=== PATIENT | male | born 1950 | race American Indian/Alaskan Native ===

== ENCOUNTER 2019-03-12 20:24 | Emergency (ER) | payer MEDICARE, OTHER ==
[2019-03-12 20:43] VITALS: BP 106/70; PULSE 63
[2019-03-12] MEDS ORDERED: GI Cocktail Oral Solution 30 ML PO ONE (21:02)
--- NOTE | 2019-03-12 21:14 | EDM.PDOC ---
ED HPI GENERAL MEDICAL PROBLEM - General Chief Complaint: Chest Pain Stated Complaint: WHOLE STOMACH HURTING Time Seen by Provider: 03/12/19 21:08 Source of Information: Reports: Patient History Limitations: Reports: No Limitations - History of Present Illness INITIAL COMMENTS - FREE TEXT/NARRATIVE: patient comes Department today with complaints of epigastric pain that has been going on for the past 3 days. He has not had any heartburn or sour taste in his throat. He has not had any nausea or vomiting but he has tried to make himself throw up to see if it would make him feel better. He still has his gallbladder. No other pain in his abdomen other than his epigastric pain. No diarrhea. No fever no chills. No chest pain or shortness of breath or difficulty breathing. No cough or congestion. No wheezing. No fever no chills.He has not tried anything for the pain other than trying to make himself throw up. Lower Chest Pain Score (Numeric/FACES): 9 - Related Data Allergies Allergy/AdvReac Type Severity Reaction Status Date / Time No Known Allergies Allergy Verified 03/12/19 20:44 Home Meds: Home Meds Fluticasone/Salmeterol [Advair 100-50] 1 puff INH BID 01/15/13 [History] Ipratropium/Albuterol Sulfate [Duoneb 0.5 MG-3 MG/3 ML] 3 ml IH BID PRN [History] Levalbuterol HCl [Xopenex] 1 puff IH BID 01/15/13 [History] Multivitamin [Multi Vitamin Daily] 1 each PO ASDIRECTED 01/15/13 [History] Ferrous Sulfate [Feosol] 325 mg PO DAILY 02/21/13 [History] Levothyroxine 50 mcg PO ACBRK 02/21/13 [History] Sennosides [Senna] 17.2 mg PO DAILY 02/21/13 [History] Tiotropium [Spiriva] 18 mcg INH DAILY 02/21/13 [History] Aspirin [Ecotrin EC] 325 mg PO DAILY 03/12/19 [History] Past Medical History HEENT History: Reports: Cataract, Impaired Vision Cardiovascular History: Reports: Heart Valve Replacement, High Cholesterol, Hypertension Respiratory History: Reports: Other (See Below) Other Respiratory History: Lung CA Gastrointestinal History: Reports: Other (See Below) Other Gastrointestinal History: Colon surgery 2013 Genitourinary History: Reports: None Musculoskeletal History: Reports: Osteoarthritis Neurological History: Reports: None Psychiatric History: Reports: None Endocrine/Metabolic History: Reports: None Hematologic History: Reports: None Immunologic History: Reports: None Oncologic (Cancer) History: Reports: Colon, Lung Other Oncologic History: Colon and Lung Cancer 2013 Dermatologic History: Reports: Eczema - Infectious Disease History Infectious Disease History: Reports: Chicken Pox, Shingles - Past Surgical History Head Surgeries/Procedures: Reports: None HEENT Surgical History: Reports: Cataract Surgery Cardiovascular Surgical History: Reports: Valve Replacement Male Surgical History: Reports: None Endocrine Surgical History: Reports: None Neurological Surgical History: Reports: None Musculoskeletal Surgical History: Reports: None Oncologic Surgical History: Reports: None Social & Family History - Family History Family Medical History: Noncontributory - Tobacco Use Smoking Status *Q: Former Smoker Used Tobacco, but Quit: Yes Month/Year Tobacco Last Used: 04/2013 Second Hand Smoke Exposure: No - Caffeine Use Caffeine Use: Reports: Coffee, Soda, Tea - Recreational Drug Use Recreational Drug Use: No ED ROS GENERAL - Review of Systems Review Of Systems: Comprehensive ROS is negative, except as noted in HPI. ED EXAM, GENERAL - Physical Exam Exam: See Below Exam Limited By: No Limitations General Appearance: Alert, WD/WN, No Apparent Distress Eye Exam: Bilateral Eye: Normal Inspection Ears: Normal External Exam, Normal TMs Nose: Normal Inspection, Normal Mucosa, No Blood Throat/Mouth: Normal Inspection, Normal Lips Head: Atraumatic, Normocephalic Neck: Normal Inspection, Supple, Non-Tender Respiratory/Chest: No Respiratory Distress, Lungs Clear, Normal Breath Sounds Cardiovascular: Normal Peripheral Pulses, Regular Rate, Rhythm GI/Abdominal: Normal Bowel Sounds, Soft, Pelvis Stable, Tender (epigastric tenderness without guarding or rebound although a positive [place] sign. ). No : Distended, Guarding, Rigid Back Exam: Normal Inspection. No: CVA Tenderness (L), CVA Tenderness (R) Extremities: Normal Inspection, Normal Range of Motion, Normal Capillary Refill Neurological: Alert, Oriented, Normal Cognition, No Motor/Sensory Deficits Psychiatric: Normal Affect, Normal Mood Skin Exam: Warm, Dry, Intact, Normal Color EKG INTERPRETATION EKG Date: 03/12/19 Time: 20:37 Rhythm: NSR Rate (Beats/Min): 58 [place]: Normal P-Wave: Present QRS: RBBB ST-T: Normal QT: Normal Comparison: NA - No Prior EKG Course - Vital Signs Last Recorded V/S: Last Vital Signs Temp 35.6 C 03/12/19 20:38 Pulse 63 03/12/19 20:38 Resp 20 03/12/19 20:38 BP 106/70 03/12/19 20:38 Pulse Ox 100 03/12/19 20:38 - Orders/Labs/Meds Orders: Active Orders 24 hr Category Date Time Status EKG 12 Lead [EKG Documentation Completion] [RC] URGENT Care 03/12/19 21:01 Active Labs: Laboratory Tests 03/12/19 03/12/19 03/12/19 Range/Units 20:42 20:42 20:42 WBC 12.3 H (5.0-10.0) 10^3/uL RBC 4.34 L (4.6-6.2) 10^6/uL Hgb 13.8 L D (14.0-18.0) g/dL Hct 42.2 (40.0-54.0) % MCV 97.2 D (80-100) fL MCH 31.8 (27.0-34.0) pg MCHC 32.7 L (33.0-35.0) g/dL Plt Count 198 (150-450) 10^3/uL Neut % (Auto) 79.1 H (42.2-75.2) % Lymph % (Auto) 10.8 L (20.5-50.1) % [place] % (Auto) 6.3 (2-8) % Eos % (Auto) 2.8 (1.0-3.0) % Baso % (Auto) 1.0 (0.0-1.0) % Add Manual Diff Yes Neutrophils % (Manual) 82 H (42-75) % Lymphocytes % (Manual) 11 L (20-50) % Monocytes % (Manual) 5 (2-8) % Eosinophils % (Manual) 2 (1-3) % Sodium 137 (135-145) mmol/L Potassium 4.1 (3.6-5.0) mmol/L Chloride 101 (101-111) mmol/L Carbon Dioxide 26.0 (21.0-31.0) mmol/L Anion Gap 14.1 BUN 33 H (7-18) mg/dL Creatinine 1.9 H (0.6-1.3) mg/dL Est Cr Clr Drug Dosing 38.95 mL/min Estimated GFR (MDRD) 36 BUN/Creatinine Ratio 17.36 Glucose 109 H (74-105) mg/dL Calcium 9.4 (8.4-10.2) mg/dl Total Bilirubin 2.0 H (0.2-1.0) mg/dL AST 64 H (10-42) IU/L ALT 34 (10-60) IU/L Alkaline Phosphatase 92 (42-121) IU/L Troponin I < 0.02 (0.00-0.02) ng/ml C-Reactive Protein 1.5 H (0.0-1.3) mg/dL Total Protein 8.4 H (6.7-8.2) g/dl Albumin 4.4 (3.2-5.5) g/dl Globulin 4.0 Albumin/Globulin Ratio 1.10 Lipase 40 (22-51) U/L Meds: Medications Discontinued Medications Generic Name Dose Route Start Last Admin Trade Name Freq PRN Reason Stop Dose Admin Al Hydroxide/Mg Hydroxide 30 ml 03/12/19 21:02 03/12/19 21:15 Gi Cocktail PO 03/12/19 21:03 30 ml ONETIME ONE Administration Hydromorphone HCl 0.5 mg 03/12/19 21:49 03/12/19 22:05 Dilaudid IVPUSH 03/12/19 21:50 0.5 mg ONETIME ONE Administration Piperacillin Sod/Tazobactam 100 mls @ 200 mls/hr 03/12/19 22:37 03/12/19 22: 44 Sod 3.375 gm/ Sodium Chloride IV 03/12/19 23:06 200 mls/hr ONETIME ONE Administration - Radiology Interpretation Free Text/Narrative:: chest x-ray per radiology no acute abnormality. - Re-Assessments/Exams Free Text/Narrative Re-Assessment/Exam: 03/12/19 21:50 GI cocktail without relief of pain. Dilaudid 0.5mg IVP Will CT abd pelvis without contrast for gallbladder no US available. Creat 2.0 at baseline no contrast. 03/13/19 01:00 Dilaudid helped the pain quite a bit. CT concerning for distended gallbladder and CBD stone. Lipase normal. Minimally elevated WBC and elevated T Clinton at 2 which is new for him. I called and spoke with Dr. Gomez the hospitalist early childhood education coordinator at [facility] in . HPI ER COURSE findings and concerns of the CBD stone with elevated [place] and distended gallbladder were explained to him. He accepted the patient in transfer at this time with Zosyn started prior to transfer. I reviewed my concerns with the patient as well. He is understanding of the plan of care and his questions answered. Departure - Departure Time of Disposition: 22:00 Disposition: DC/Tfer to [facility] 02 Reason for Transfer *Q: Other Clinical Impression: Common bile duct (CBD) obstruction Referrals: Ramón Muller MD [Primary Care Provider] - Forms: ED Department Discharge Sepsis Event Note - Evaluation Sepsis Screening Result: No Definite Risk - Focused Exam Vital Signs: Vital Signs Temp Pulse Resp BP Pulse Ox 03/12/19 20:38 35.6 C 63 20 106/70 100 Date Exam was Performed: 03/13/19 Time Exam was Performed: 00:59 - My Orders Last 24 Hours: My Active Orders 03/12/19 21:01 EKG 12 Lead [EKG Documentation Completion] [RC] URGENT - Assessment/Plan Last 24 Hours: My Active Orders 03/12/19 21:01 EKG 12 Lead [EKG Documentation Completion] [RC] URGENT Assessment:: Distended gallbladder with CT concerns for CBD stone Elevated T [place] Plan: Transfer to [facility] Dr. Gomez for further care and evaluation.
[2019-03-12 21:24] LABS: ANION GAP 14.1; CHLORIDE,CL 101 mmol/L (101-111); SODIUM,NA 137 mmol/L (135-145)
[2019-03-12] MEDS ORDERED: HYDROmorphone 0.5 MG/0.5 ML Syringe IVPUSH ONE (21:49)
[2019-03-12] MEDS ORDERED: Piperacillin/Tazobactam 3.375 GM in Sodium Chloride 0.9% 100 ML IV ONE (22:37)
== END 2019-03-13 00:55 ==
LOC: DL.ED 20:24
DX: K83.1 Obstruction of bile duct (principal); M19.90 Unspecified osteoarthritis, unspecified site; I10 Essential (primary) hypertension; Z79.899 Other long term (current) drug therapy; Z79.82 Long term (current) use of aspirin; Z87.891 Personal history of nicotine dependence
CPT/HCPCS: 36415; 71046; 74176; 80053; 83690; 84484; 85025; 86140; 93005; 96365; 96366; 96375; 99284; A9270; J1170; J2543; J7050; 93010

== ENCOUNTER 2020-12-27 11:09 | Observation (INO) | payer MEDICARE, OTHER ==
[2020-12-27] MEDS ORDERED: Adenosine 6 MG/2 ML SDV IVPUSH ONE ×2 (11:24→11:36)
[2020-12-27] MEDS ORDERED: Diltiazem 25 MG/5 ML SDV IVPUSH ONE (11:43)
--- NOTE | 2020-12-27 11:47 | EDM.PDOC ---
ED HPI GENERAL MEDICAL PROBLEM - General Chief Complaint: Cardiovascular Problem Stated Complaint: FROM [facility] Time Seen by Provider: 12/27/20 11:10 Source of Information: Reports: Patient, Provider History Limitations: Reports: No Limitations - History of Present Illness INITIAL COMMENTS - FREE TEXT/NARRATIVE: This 70 yo male patient was sent to the ED from the infusion center due to a heart rate of 167. EKG was reported as A fib with RVR. The patient reports he is asymptomatic with his current heart rate. The patient does have a history of A Fib with RVR and Lung Cancer. The patient reports he has been taking his medications as prescribed. The patient does not want to be admitted to the hospital due to the patient having children at home that he needs to take care of. Onset: Unknown/Unsure Duration: Constant Location: Reports: Other Quality: Reports: Other Severity: Moderate Improves with: Reports: None Worsens with: Reports: None Context: Reports: Other Associated Symptoms: Reports: No Other Symptoms - Related Data Allergies Allergy/AdvReac Type Severity Reaction Status Date / Time No Known Allergies Allergy Verified 12/27/20 11:19 Home Meds: Home Meds Fluticasone/Salmeterol [Advair 100-50] 1 puff INH BID 01/15/13 [History] Ipratropium/Albuterol Sulfate [Duoneb 0.5 MG-3 MG/3 ML] 3 ml IH BID PRN 01/15/13 [History] Levalbuterol HCl [Xopenex] 1 puff IH BID 01/15/13 [History] Multivitamin [Multi Vitamin Daily] 1 each PO ASDIRECTED 01/15/13 [History] Ferrous Sulfate [Feosol] 325 mg PO DAILY 02/21/13 [History] Levothyroxine 50 mcg PO ACBRK 02/21/13 [History] Sennosides [Senna] 17.2 mg PO DAILY 02/21/13 [History] Tiotropium [Spiriva] 18 mcg INH DAILY 02/21/13 [History] Aspirin [Ecotrin EC] 325 mg PO DAILY 03/12/19 [History] Past Medical History HEENT History: Reports: Cataract, Impaired Vision Cardiovascular History: Reports: Heart Valve Replacement, High Cholesterol, Hypertension Respiratory History: Reports: Other (See Below) Other Respiratory History: Lung CA Gastrointestinal History: Reports: Other (See Below) Other Gastrointestinal History: Colon surgery 2013 Genitourinary History: Reports: None Musculoskeletal History: Reports: Osteoarthritis Neurological History: Reports: None Psychiatric History: Reports: None Endocrine/Metabolic History: Reports: None Hematologic History: Reports: None Immunologic History: Reports: None Oncologic (Cancer) History: Reports: Colon, Lung Other Oncologic History: Colon and Lung Cancer 2013 Dermatologic History: Reports: Eczema - Infectious Disease History Infectious Disease History: Reports: Chicken Pox, Shingles - Past Surgical History Head Surgeries/Procedures: Reports: None HEENT Surgical History: Reports: Cataract Surgery Cardiovascular Surgical History: Reports: Valve Replacement Male Surgical History: Reports: None Endocrine Surgical History: Reports: None Neurological Surgical History: Reports: None Musculoskeletal Surgical History: Reports: None Oncologic Surgical History: Reports: None Social & Family History - Family History Family Medical History: No Pertinent Family History - Caffeine Use Caffeine Use: Reports: Coffee, Soda, Tea ED ROS GENERAL - Review of Systems Review Of Systems: Comprehensive ROS is negative, except as noted in HPI. ED EXAM, GENERAL - Physical Exam Exam: See Below Exam Limited By: No Limitations General Appearance: Alert, WD/WN, Moderate Distress Eye Exam: Bilateral Eye: EOMI, Normal Inspection, PERRL Ears: Normal External Exam, Normal Canal, Hearing Grossly Normal, Normal TMs Nose: Normal Inspection, Normal Mucosa, No Blood Throat/Mouth: Normal Inspection, Normal Lips, Normal Teeth, Normal Gums, Normal Oropharynx, Normal Voice, No Airway Compromise Head: Atraumatic, Normocephalic Neck: Normal Inspection, Supple, Non-Tender, Full Range of Motion Respiratory/Chest: No Respiratory Distress, Lungs Clear, Normal Breath Sounds, No Accessory Muscle Use, Chest Non-Tender Cardiovascular: Tachycardia GI/Abdominal: Normal Bowel Sounds, Soft, Non-Tender, No Organomegaly, No Distention, No Abnormal Bruit, No Mass (Male) Exam: Deferred Rectal (Males) Exam: Deferred Back Exam: Normal Inspection, Full Range of Motion, NT Extremities: Normal Inspection, Normal Range of Motion, Non-Tender, Normal Capillary Refill, No Pedal Edema Neurological: Alert, Oriented, CN II-XII Intact, Normal Cognition, Normal Gait, Normal Reflexes, No Motor/Sensory Deficits Psychiatric: Normal Affect, Normal Mood Skin Exam: Warm, Dry, Intact, Normal Color, No Rash Lymphatic: No Adenopathy #1 Interpretation EKG Date: 12/27/20 Time: 11:19 Rhythm: Other (SVT) Rate (Beats/Min): 166 [place]: Normal P-Wave: Present QRS: Normal ST-T: Normal QT: Normal #2 Interpretation EKG Date: 12/27/20 Time: 11:49 Rhythm: A-Flutter Rate (Beats/Min): 80 [place]: Normal P-Wave: Present QRS: Normal ST-T: Normal QT: Normal #3 Interpretation EKG Date: 12/27/20 Time: 11:53 Rhythm: A-Fib Rate (Beats/Min): 84 [place]: Normal P-Wave: Absent QRS: Normal ST-T: Normal QT: Normal Comparison: Other: (The patient has a past history of intermittent A fib.) Course - Vital Signs Last Recorded V/S: Last Vital Signs Temp 97.8 F 12/27/20 11:26 Pulse 166 H 12/27/20 11:26 Resp 20 12/27/20 11:26 BP 118/103 H 12/27/20 11:26 Pulse Ox 95 12/27/20 11:26 - Orders/Labs/Meds Orders: Active Orders 24 hr Category Date Time Status Admission Diagnosis [ADT] Urgent ADT 12/27/20 13:07 Ordered Admission Status [Patient Status] [ADT] Urgent ADT 12/27/20 13:07 Ordered Diltiazem 125 MG in NS @ 5 MG/HR(100ml) Med 12/27/20 13:15 Ordered Diltiazem 125 mg Sodium Chloride 0.9% [Normal Saline] 100 ml IV TITRATE Medication Orders Diltiazem HCl 125 mg/ Sodium (Chloride) 125 mls @ 5 mls/hr IV TITRATE ALEM; Protocol Labs: Laboratory Tests 12/27/20 12/27/20 Range/Units 11:20 11:20 WBC 4.8 L (5.0-10.0) 10^3/uL RBC 3.76 L (4.6-6.2) 10^6/uL Hgb 12.1 L D (14.0-18.0) g/dL Hct 38.4 L (40.0-54.0) % MCV 102.1 H D (80-100) fL MCH 32.2 (27.0-34.0) pg MCHC 31.5 L (33.0-35.0) g/dL Plt Count 219 (150-450) 10^3/uL Neut % (Auto) 52.8 (42.2-75.2) % Lymph % (Auto) 26.9 (20.5-50.1) % [place] % (Auto) 11.3 H (2-8) % Eos % (Auto) 6.3 H (1.0-3.0) % Baso % (Auto) 2.7 H (0.0-1.0) % Sodium 140 (136-145) mmol/L Potassium 4.4 (3.5-5.1) mmol/L Chloride 105 (98-107) mmol/L Carbon Dioxide 25 (21-32) mmol/L Anion Gap 14.4 H (7-13) mEq/L BUN 26 H (7-18) mg/dL Creatinine 1.98 H (0.70-1.30) mg/dL Est Cr Clr Drug Dosing TNP Estimated GFR (MDRD) 34 BUN/Creatinine Ratio 13.1 (No establ ref range) Glucose 119 H (70-99) mg/dL Calcium 8.6 (8.5-10.1) mg/dL Total Bilirubin 0.7 (0.2-1.0) mg/dL AST 21 (15-37) U/L ALT 17 (16-63) U/L Alkaline Phosphatase 119 H (46-116) U/L Troponin I High Sens 17 (<=76) pg/mL Total Protein 7.4 (6.4-8.2) g/dL Albumin 3.4 (3.4-5.0) g/dL Globulin 4.0 Albumin/Globulin Ratio 0.9 Meds: Medications Generic Name Dose Route Start Last Admin Trade Name Freq PRN Reason Stop Dose Admin Diltiazem HCl 125 mg/ Sodium 125 mls @ 5 mls/hr 12/27/20 13:15 Chloride IV TITRATE ALEM Protocol 5 MG/HR Discontinued Medications Generic Name Dose Route Start Last Admin Trade Name Freq PRN Reason Stop Dose Admin Adenosine 6 mg 12/27/20 11:24 12/27/20 11:34 Adenosine 6 Mg/2 Ml Sdv IVPUSH 12/27/20 11:25 6 mg NOW ONE Administration Adenosine 12 mg 12/27/20 11:36 12/27/20 11:39 Adenosine 6 Mg/2 Ml Sdv IVPUSH 12/27/20 11:37 12 mg NOW ONE Administration Diltiazem HCl 20 mg 12/27/20 11:43 12/27/20 11:45 Diltiazem 25 Mg/5 Ml Sdv IVPUSH 12/27/20 11:44 20 mg ONETIME ONE Administration - Re-Assessments/Exams Free Text/Narrative Re-Assessment/Exam: 12/27/20 11:44 An initial dose of Adenosine was given (6 mg) demonstrated a very brief episode of the ventricular rate slowing with an underlying atrial flutter. Ventricular rate increased after several seconds. A second dose of Adenosine was given (12 mg) demonstrating another episode of a slowed ventricular rate, but continued to demonstrate atrial flutter. The ventricular rate again increased to 160's. The patient was advised of the results. An order was placed for Cardizem to be given. Departure - Departure Time of Disposition: 13:09 Disposition: Admitted As Inpatient 67 Condition: Fair Clinical Impression: SVT (supraventricular tachycardia) Atrial flutter Qualifiers: Atrial flutter type: unspecified Qualified Code(s): I48.92 - Unspecified atrial flutter Care Plan Goals: Discussed the patient's history, examination, EKG and treatment's with Dr. Johnson. Dr. Lawson accepted the patient for continued evaluation and management as an inpatient at [facility]. Sepsis Event Note (ED) - Focused Exam Vital Signs: Vital Signs Temp Pulse Resp BP Pulse Ox 12/27/20 11:26 97.8 F 166 H 20 118/103 H 95 - My Orders Last 24 Hours: My Active Orders 12/27/20 13:07 Admission Diagnosis [ADT] Urgent Admission Status [Patient Status] [ADT] Urgent 12/27/20 13:15 Diltiazem 125 MG in NS @ 5 MG/HR(100ml) Diltiazem 125 mg Sodium Chloride 0.9% [Normal Saline] 100 ml IV TITRATE - Assessment/Plan Last 24 Hours: My Active Orders 12/27/20 13:07 Admission Diagnosis [ADT] Urgent Admission Status [Patient Status] [ADT] Urgent 12/27/20 13:15 Diltiazem 125 MG in NS @ 5 MG/HR(100ml) Diltiazem 125 mg Sodium Chloride 0.9% [Normal Saline] 100 ml IV TITRATE
[2020-12-27 11:56] LABS: ANION GAP 14.4 mEq/L (7-13); CHLORIDE,CL 105 mmol/L (98-107); SODIUM,NA 140 mmol/L (136-145)
[2020-12-27] MEDS ORDERED: Diltiazem 125 MG in Sodium Chloride 0.9% 100 ML IV SCH (13:15)
[2020-12-27] MEDS ORDERED: Acetaminophen/oxyCODONE 325-5 MG Tab PO PRN (14:35)
[2020-12-27] MEDS ORDERED: Albuterol/Ipratropium 3.0-0.5 MG/3 ML Neb Soln NEB PRN (14:35)
[2020-12-27] MEDS ORDERED: Sodium Chloride 0.9% 10 ML Syringe FLUSH PRN (14:39)
[2020-12-27] MEDS ORDERED: Ondansetron 4 MG/2 ML SDV IVPUSH PRN (14:39)
[2020-12-27] MEDS ORDERED: Temazepam 15 MG Cap PO PRN (14:39)
[2020-12-27] MEDS ORDERED: Multivitamin Tab PO SCH (14:45)
--- NOTE | 2020-12-27 14:49 | PCM.HP ---
H&P History of Present Illness - General Date of Service: 12/27/20 Admit Problem/Dx: Admission Diagnosis/Problem Admission Diagnosis/Problem Atrial flutter Source of Information: Patient - History of Present Illness Initial Comments - Free Text/Narative: 70 yo with h/o afib not on anticoagulation b/c of bleed h/o lung ca was at clinic for Keytruda infusion when he was noted to have tachycardia with RH 150s patient was asymtpomatic he says he has been drinking lot of coffee, this morning has already finished a 10 cup pot and usually drinks another 10 cups later he thinks he was drinking even more than usual coffee [place] noted to have tachycardia, asymptomatic given adenosine - noted aflutter started cardizem drip no cp, no sob, no lightheadedness now - Related Data Allergies/Adverse Reactions: Allergies Allergy/AdvReac Type Severity Reaction Status Date / Time No Known Allergies Allergy Verified 12/27/20 14:30 Home Medications: Home Meds Fluticasone/Salmeterol [Advair 100-50] 1 puff INH BID 01/15/13 [History] Ipratropium/Albuterol Sulfate [Duoneb 0.5 MG-3 MG/3 ML] 3 ml IH BID PRN 01/15/13 [History] Levalbuterol HCl [Xopenex] 1 puff IH BID 01/15/13 [History] Multivitamin [Multi Vitamin Daily] 1 each PO ASDIRECTED 01/15/13 [History] Ferrous Sulfate [Feosol] 325 mg PO DAILY 02/21/13 [History] Levothyroxine 75 mcg PO ACBRK 02/21/13 [History] Tiotropium [Spiriva] 18 mcg INH DAILY 02/21/13 [History] Acetaminophen/oxyCODONE [Percocet 325-5 MG] 1 - 2 tab PO Q6HR PRN 12/27/20 [History] Aspirin [Halfprin] 81 mg PO DAILY 12/27/20 [History] Docusate Sodium [Colace] 100 mg PO DAILY 12/27/20 [History] Folic Acid 1 mg PO DAILY 12/27/20 [History] Gabapentin [Neurontin] 900 mg PO TID 12/27/20 [History] Midodrine 2.5 mg PO BID 12/27/20 [History] Sodium Chloride 0.65% [[place] Nasal [place]] 1 spray NASBOTH Q4H PRN 12/27/20 [History] Past Medical History HEENT History: Reports: Cataract, Impaired Vision Cardiovascular History: Reports: Heart Valve Replacement, High Cholesterol, Hypertension Respiratory History: Reports: Other (See Below) Other Respiratory History: Lung CA Gastrointestinal History: Reports: Other (See Below) Other Gastrointestinal History: Colon surgery 2013 Genitourinary History: Reports: None Musculoskeletal History: Reports: Osteoarthritis Neurological History: Reports: None Psychiatric History: Reports: None Endocrine/Metabolic History: Reports: None Hematologic History: Reports: None Immunologic History: Reports: None Oncologic (Cancer) History: Reports: Colon, Lung Other Oncologic History: Colon and Lung Cancer 2013 Dermatologic History: Reports: Eczema - Infectious Disease History Infectious Disease History: Reports: Chicken Pox, Shingles - Past Surgical History Head Surgeries/Procedures: Reports: None HEENT Surgical History: Reports: Cataract Surgery Cardiovascular Surgical History: Reports: Valve Replacement Male Surgical History: Reports: None Endocrine Surgical History: Reports: None Neurological Surgical History: Reports: None Musculoskeletal Surgical History: Reports: None Oncologic Surgical History: Reports: None Social & Family History - Family History Family Medical History: No Pertinent Family History - Tobacco Use Tobacco Use Status *Q: Never Tobacco User Second Hand Smoke Exposure: Yes - Caffeine Use Caffeine Use: Reports: Coffee - Recreational Drug Use Recreational Drug Use: Yes Recreational Drug Type: Reports: Marijuana/Hashish H&P Review of Systems - Review of Systems: Review Of Systems: See Below General: Denies: Fever Pulmonary: Reports: Shortness of Breath (chronic) Cardiovascular: Denies: Chest Pain, Edema Genitourinary: Denies: Dysuria Psychiatric: Denies: Confusion Exam - Exam Exam: See Below - Vital Signs Vital Signs: Last Vital Signs Temp 97.8 F 12/27/20 11:26 Pulse 166 H 12/27/20 11:26 Resp 20 12/27/20 11:26 BP 118/103 H 12/27/20 11:26 Pulse Ox 95 12/27/20 11:26 Weight: 175 lb - Exam General: Alert, Oriented Neck: Supple Lungs: Normal Respiratory Effort, Decreased Breath Sounds Cardiovascular: Irregular Rhythm. No: Tachycardia GI/Abdominal Exam: Normal Bowel Sounds, Soft, Non-Tender Extremities: No Pedal Edema - Patient Data Lab Results Last 24 hrs: Laboratory Results - last 24 hr 12/27/20 12/27/20 Range/Units 11:20 11:20 WBC 4.8 L (5.0-10.0) 10^3/uL RBC 3.76 L (4.6-6.2) 10^6/uL Hgb 12.1 L D (14.0-18.0) g/dL Hct 38.4 L (40.0-54.0) % MCV 102.1 H D (80-100) fL MCH 32.2 (27.0-34.0) pg MCHC 31.5 L (33.0-35.0) g/dL Plt Count 219 (150-450) 10^3/uL Neut % (Auto) 52.8 (42.2-75.2) % Lymph % (Auto) 26.9 (20.5-50.1) % [place] % (Auto) 11.3 H (2-8) % Eos % (Auto) 6.3 H (1.0-3.0) % Baso % (Auto) 2.7 H (0.0-1.0) % Sodium 140 (136-145) mmol/L Potassium 4.4 (3.5-5.1) mmol/L Chloride 105 (98-107) mmol/L Carbon Dioxide 25 (21-32) mmol/L Anion Gap 14.4 H (7-13) mEq/L BUN 26 H (7-18) mg/dL Creatinine 1.98 H (0.70-1.30) mg/dL Est Cr Clr Drug Dosing TNP Estimated GFR (MDRD) 34 BUN/Creatinine Ratio 13.1 (No establ ref range) Glucose 119 H (70-99) mg/dL Calcium 8.6 (8.5-10.1) mg/dL Total Bilirubin 0.7 (0.2-1.0) mg/dL AST 21 (15-37) U/L ALT 17 (16-63) U/L Alkaline Phosphatase 119 H (46-116) U/L Troponin I High Sens 17 (<=76) pg/mL Total Protein 7.4 (6.4-8.2) g/dL Albumin 3.4 (3.4-5.0) g/dL Globulin 4.0 Albumin/Globulin Ratio 0.9 Result Diagrams: 12/27/20 11:20 12/27/20 11:20 - Problem List (1) Atrial flutter SNOMED Code(s): 5371591 ICD Code: I48.92 - UNSPECIFIED ATRIAL FLUTTER Status: Acute Current Visit: No Qualifiers: Atrial flutter type: unspecified Qualified Code(s): I48.92 - Unspecified atrial flutter (2) COLD, Chronic obstructive lung disease SNOMED Code(s): 49460829 ICD Code: J44.9 - CHRONIC OBSTRUCTIVE PULMONARY DISEASE, UNSPECIFIED Status: Acute Current Visit: No Problem List Initiated/Reviewed/Updated: Yes Orders Last 24hrs: Active Orders 24 hr Category Date Time Status Admission Diagnosis [ADT] Urgent ADT 12/27/20 13:07 Ordered Patient Status [ADT] Routine ADT 12/27/20 14:39 Ordered Oxygen Therapy [RC] PRN Care 12/27/20 14:39 Ordered Peripheral IV Care [RC] . DIRECTED Care 12/27/20 14:40 Ordered RT Aerosol Therapy [RC] ASDIRECTED Care 12/27/20 14:36 Ordered RT Post Treatment Assessment [RC] Click to Edit Care 12/27/20 14:36 Ordered RT Pre-Treatment Assessment [RC] Click to Edit Care 12/27/20 14:36 Ordered Up With Assistance [RC] ASDIRECTED Care 12/27/20 14:39 Ordered VTE/DVT Education [RC] PER UNIT ROUTINE Care 12/27/20 14:39 Ordered Vital Signs [RC] Q4H Care 12/27/20 14:39 Ordered Regular Diet [DIET] Diet 12/27/20 Dinner Ordered Acetaminophen/oxyCODONE [Percocet 325-5 MG] Med 12/27/20 14:35 Ordered 2 tab PO Q6HR PRN Albuterol/Ipratropium [DuoNeb 3.0-0.5 MG/3 ML] Med 12/27/20 14:35 Ordered 3 ml NEB Q4H PRN Aspirin [Halfprin] Med 12/28/20 09:00 Ordered 81 mg PO DAILY Diltiazem 125 mg Med 12/27/20 13:15 Active Sodium Chloride 0.9% [Normal Saline] 100 ml IV TITRATE Docusate Sodium [Colace] Med 12/28/20 09:00 Ordered 100 mg PO DAILY Ferrous Sulfate Med 12/28/20 09:00 Ordered 325 mg PO DAILY Fluticasone/Salmeterol Med 12/27/20 21:00 Ordered 1 puff INH BID Folic Acid Med 12/28/20 09:00 Ordered 1 mg PO DAILY Gabapentin Med 12/27/20 21:00 Ordered 900 mg PO TID Heparin Sodium Med 12/27/20 22:00 Ordered 5,000 units SUBCUT Q8HR Levalbuterol HCl [Xopenex] Med 12/27/20 21:00 Ordered 1 puff IH BID Levothyroxine Med 12/28/20 06:00 Ordered 75 mcg PO ACBRK Metoprolol Tartrate [Lopressor] Med 12/27/20 14:45 Ordered 12.5 mg PO BID Midodrine Med 12/27/20 21:00 Ordered 2.5 mg PO BID Multivitamin [Multi-Vitamin Daily] Med 12/27/20 14:45 Ordered 1 each PO ASDIRECTED Ondansetron [Zofran] Med 12/27/20 14:39 Ordered 4 mg IVPUSH Q6H PRN Sodium Chloride 0.9% [Saline Flush] Med 12/27/20 14:39 Ordered 10 ml FLUSH ASDIRECTED PRN Temazepam [Restoril] Med 12/27/20 14:39 Ordered 15 mg PO BEDTIME PRN Tiotropium [Spiriva HandiHaler] Med 12/28/20 09:00 Ordered 18 mcg INH DAILY Peripheral IV Insertion Adult [OM.PC] Routine Oth 12/27/20 14:39 Ordered Saline Lock Insert [OM.PC] Routine Oth 12/27/20 14:39 Ordered Resuscitation Status Routine Resus Stat 12/27/20 14:39 Ordered Medication Orders Albuterol/Ipratropium (Albuterol/Ipratropium 3.0-0.5 Mg/3 Ml Neb Soln) 3 ml NEB Q4H PRN PRN Reason: Wheezing Aspirin (Aspirin 81 Mg Tab.Ec) 81 mg PO DAILY [facility] Docusate Sodium (Docusate Sodium 100 Mg Cap) 100 mg PO DAILY [facility] Ferrous Sulfate (Ferrous Sulfate 325 Mg Tab) 325 mg PO DAILY [facility] Folic Acid (Folic Acid 1 Mg Tab) 1 mg PO DAILY [facility] Heparin Sodium (Porcine) (Heparin Sodium 5,000 Units/Ml Vial) 5,000 units SUBCUT Q8HR [facility] Diltiazem HCl 125 mg/ Sodium (Chloride) 125 mls @ 5 mls/hr IV TITRATE [facility]; Protocol Last Admin: 12/27/20 13:20 Dose: 5 mg/hr, 5 mls/hr Documented by: [id number] Levothyroxine Sodium (Levothyroxine 25 Mcg Tab) 75 mcg PO ACBRK [facility] Metoprolol Tartrate (Metoprolol Tartrate 50 Mg Tab) 12.5 mg PO BID [facility] Midodrine (Midodrine 2.5 Mg Tab) 2.5 mg PO BID [facility] Non-Formulary Medication (Fluticasone/Salmeterol) 1 puff INH BID [facility] Non-Formulary Medication (Gabapentin) 900 mg PO TID [facility]LEM Non-Formulary Medication (Levalbuterol Hcl [Xopenex]) 1 puff IH BID [facility]M Non-Formulary Medication (Multivitamin [Multi-Vitamin Daily]) 1 each PO ASDIRECTED [facility]M Ondansetron HCl (Ondansetron 4 Mg/2 Ml Sdv) 4 mg IVPUSH Q6H PRN PRN Reason: Nausea/Vomiting Oxycodone/Acetaminophen (Acetaminophen/Oxycodone 325-5 Mg Tab) 2 tab PO Q6HR PRN PRN Reason: Pain Sodium Chloride (Sodium Chloride 0.9% 10 Ml Syringe) 10 ml FLUSH ASDIRECTED PRN PRN Reason: Keep Vein Open Temazepam (Temazepam 15 Mg Cap) 15 mg PO BEDTIME PRN PRN Reason: Sleep Tiotropium [place] (Tiotropium Inhaler 18 Mcg Inhalation Powder Cap Kit Of 5) 18 mcg INH DAILY [facility] Assessment/Plan Comment:: presented with tachycardia noted rapid afib rate is controlled now on 5 mg/h cardizem drip will give metoprolol stop cardizem drip h/o orthostatic hypotension and on midodrine - follow hr and BP try to balance midodrine, metoprolol decrease coffee intake monitor on tele anticoagulation for afib had bleeding on blood thinners - cont ASA copd resume home inhalers dvt prophylaxis sq heparin
[2020-12-27] MEDS: Metoprolol Tartrate 50 MG Tab PO SCH ×2 (14:50→21:05)
[2020-12-27] MEDS: Gabapentin 300 MG Cap PO SCH (21:04)
[2020-12-27] MEDS: Formoterol/Mometasone 100-5 MCG 8.8 GM Inhaler IH SCH (21:05)
[2020-12-27] MEDS: Midodrine 2.5 MG Tab PO SCH (21:05)
[2020-12-27] MEDS: Heparin Sodium 5,000 Units/ML Vial SUBCUT SCH (21:12)
[2020-12-28] MEDS: Heparin Sodium 5,000 Units/ML Vial SUBCUT SCH (05:01)
[2020-12-28] MEDS ORDERED: Levothyroxine 25 MCG Tab PO SCH (06:00)
[2020-12-28] MEDS ORDERED: Folic Acid 1 MG Tab PO SCH (09:00)
[2020-12-28] MEDS ORDERED: Aspirin 81 MG Tab.EC PO SCH (09:00)
[2020-12-28] MEDS ORDERED: Tiotropium Inhaler 18 MCG Inhalation Powder Cap Kit of 5 INH SCH (09:00)
[2020-12-28] MEDS ORDERED: Docusate Sodium 100 MG Cap PO SCH (09:00)
[2020-12-28] MEDS ORDERED: Ferrous Sulfate 325 MG Tab PO SCH (09:00)
[2020-12-28] MEDS: Gabapentin 300 MG Cap PO SCH (09:35)
[2020-12-28] MEDS: Metoprolol Tartrate 50 MG Tab PO SCH (09:35)
[2020-12-28] MEDS: Midodrine 2.5 MG Tab PO SCH (09:35)
[2020-12-28] MEDS: Formoterol/Mometasone 100-5 MCG 8.8 GM Inhaler IH SCH (09:36)
[2020-12-28 09:43] VITALS: BP 112/65; PULSE 105
--- NOTE | 2020-12-28 10:13 | PCM.DCSUM1 ---
Discharge Summary - Hospital Course Free Text/Narrative:: 70 yo with h/o afib not on anticoagulation b/c of bleed h/o lung ca was at clinic for Keytruda infusion when he was noted to have tachycardia with RH 150s patient was asymtpomatic he says he has been drinking lot of coffee, this morning has already finished a 10 cup pot and usually drinks another 10 cups later he thinks he was drinking even more than usual coffee yesterday [place] noted to have tachycardia, asymptomatic given adenosine - noted aflutter started cardizem drip transitioned to PO metoprolol overnight remained in afib/flutter with controlled HR h/o orthostatic hypotension and on midodrine - follow hr and BP as out pt try to balance midodrine, metoprolol decrease coffee intake anticoagulation for afib had bleeding on blood thinners - cont ASA copd resume home inhalers Diagnosis: Stroke: No - Discharge Data Discharge Date: 12/28/20 Discharge Disposition: Home, Self-Care 01 Condition: Good - Referral to Home Health Primary Care Physician: PCP None - Discharge Diagnosis/Problem(s) (1) Atrial flutter SNOMED Code(s): 0075370 ICD Code: I48.92 - UNSPECIFIED ATRIAL FLUTTER Status: Acute Current Visit: No Qualifiers: Atrial flutter type: unspecified Qualified Code(s): I48.92 - Unspecified atrial flutter (2) COLD, Chronic obstructive lung disease SNOMED Code(s): 25071959 ICD Code: J44.9 - CHRONIC OBSTRUCTIVE PULMONARY DISEASE, UNSPECIFIED Status: Acute Current Visit: No - Patient Instructions Diet: Heart Healthy Diet Activity: As Tolerated - Discharge Plan *PRESCRIPTION DRUG MONITORING PROGRAM REVIEWED*: Not Applicable *COPY OF PRESCRIPTION DRUG MONITORING REPORT IN PATIENT ALBINO: Not Applicable Prescriptions/Med Rec: Metoprolol Tartrate [Lopressor] 12.5 mg PO BID #60 tablet Home Medications: Home Meds Levalbuterol HCl [Xopenex] 1 puff IH BID 01/15/13 [History] Multivitamin [Multi-Vitamin Daily] 1 each PO ASDIRECTED 01/15/13 [History] Ferrous Sulfate [Feosol] 325 mg PO DAILY 02/21/13 [History] Levothyroxine 75 mcg PO ACBRK 02/21/13 [History] Tiotropium [Spiriva HandiHaler] 18 mcg INH DAILY 02/21/13 [History] Acetaminophen/oxyCODONE [Percocet 325-5 MG] 1 - 2 tab PO Q6HR PRN 12/27/20 [History] Aspirin [Halfprin] 81 mg PO DAILY 12/27/20 [History] Docusate Sodium [Colace] 100 mg PO DAILY 12/27/20 [History] Folic Acid 1 mg PO DAILY 12/27/20 [History] Gabapentin [Neurontin] 900 mg PO TID 12/27/20 [History] Midodrine 2.5 mg PO BID 12/27/20 [History] Sodium Chloride 0.65% [[place] Nasal [place]] 1 spray NASBOTH Q4H PRN 12/27/20 [History] Fluticasone Propion/Salmeterol [Fluticasone-Salmeterol 500-50] 1 each IH BID 12/28/20 [History] Metoprolol Tartrate [Lopressor] 12.5 mg PO BID #60 tablet 12/28/20 [Rx] Non-Formulary Medication [NF Drug] 0.6 ml SQ ONETIME 12/28/20 [History] oxyCODONE HCl/Acetaminophen [Oxycodone-Acetaminophen 5-325] 1 - 2 tab PO Q6H PRN 12/28/20 [History] Oxygen Therapy Mode: Room Air Referrals: Roxane,Andres, FINISHING PAN OPERATOR [Ordering Only Provider] - - Discharge Summary/Plan Comment DC Time >30 min.: No Total # of Minutes for Discharge Time: 20 - General Info Date of Service: 12/28/20 Admission Dx/Problem (Free Text: Admission Diagnosis/Problem Admission Diagnosis/Problem Atrial flutter Functional Status: Reports: Tolerating Diet - Review of Systems General: Denies: Fever Pulmonary: Denies: Shortness of Breath Cardiovascular: Denies: Chest Pain, Palpitations, Edema, Lightheadedness Gastrointestinal: Denies: Abdominal Pain Neurological: Denies: Confusion - Patient Data Vitals - Most Recent: Last Vital Signs Temp 98.4 F 12/28/20 09:55 Pulse 105 H 12/28/20 09:55 Resp 18 12/28/20 09:55 BP 112/65 12/28/20 09:55 Pulse Ox 94 L 12/28/20 09:55 Weight - Most Recent: 175 lb I&O - Last 24 hours: Intake & Output 12/27/20 12/28/20 12/28/20 22:59 06:59 14:59 Intake Total 1100 500 340 Balance 1100 500 340 Lab Results - Last 24 hrs: Laboratory Results - last 24 hr 12/27/20 12/27/20 Range/Units 11:20 11:20 WBC 4.8 L (5.0-10.0) 10^3/uL RBC 3.76 L (4.6-6.2) 10^6/uL Hgb 12.1 L D (14.0-18.0) g/dL Hct 38.4 L (40.0-54.0) % MCV 102.1 H D (80-100) fL MCH 32.2 (27.0-34.0) pg MCHC 31.5 L (33.0-35.0) g/dL Plt Count 219 (150-450) 10^3/uL Neut % (Auto) 52.8 (42.2-75.2) % Lymph % (Auto) 26.9 (20.5-50.1) % [place] % (Auto) 11.3 H (2-8) % Eos % (Auto) 6.3 H (1.0-3.0) % Baso % (Auto) 2.7 H (0.0-1.0) % Sodium 140 (136-145) mmol/L Potassium 4.4 (3.5-5.1) mmol/L Chloride 105 (98-107) mmol/L Carbon Dioxide 25 (21-32) mmol/L Anion Gap 14.4 H (7-13) mEq/L BUN 26 H (7-18) mg/dL Creatinine 1.98 H (0.70-1.30) mg/dL Est Cr Clr Drug Dosing TNP Estimated GFR (MDRD) 34 BUN/Creatinine Ratio 13.1 (No establ ref range) Glucose 119 H (70-99) mg/dL Calcium 8.6 (8.5-10.1) mg/dL Total Bilirubin 0.7 (0.2-1.0) mg/dL AST 21 (15-37) U/L ALT 17 (16-63) U/L Alkaline Phosphatase 119 H (46-116) U/L Troponin I High Sens 17 (<=76) pg/mL Total Protein 7.4 (6.4-8.2) g/dL Albumin 3.4 (3.4-5.0) g/dL Globulin 4.0 Albumin/Globulin Ratio 0.9 Med Orders - Current: Current Medications Albuterol/Ipratropium (Albuterol/Ipratropium 3.0-0.5 Mg/3 Ml Neb Soln) 3 ml NEB Q4H PRN PRN Reason: Wheezing Aspirin (Aspirin 81 Mg Tab.Ec) 81 mg PO DAILY [facility] Last Admin: 12/28/20 09:35 Dose: 81 mg Documented by: Docusate Sodium (Docusate Sodium 100 Mg Cap) 100 mg PO DAILY [facility] Last Admin: 12/28/20 09:35 Dose: 100 mg Documented by: Ferrous Sulfate (Ferrous Sulfate 325 Mg Tab) 325 mg PO DAILY [facility] Last Admin: 12/28/20 09:35 Dose: 325 mg Documented by: Folic Acid (Folic Acid 1 Mg Tab) 1 mg PO DAILY [facility] Last Admin: 12/28/20 09:35 Dose: 1 mg Documented by: Gabapentin (Gabapentin 300 Mg Cap) 900 mg PO TID [facility] Last Admin: 12/28/20 09:35 Dose: 900 mg Documented by: Heparin Sodium (Porcine) (Heparin Sodium 5,000 Units/Ml Vial) 5,000 units SUBCUT Q8HR [facility] Last Admin: 12/28/20 05:01 Dose: 5,000 units Documented by: Levothyroxine Sodium (Levothyroxine 25 Mcg Tab) 75 mcg PO ACBRK [facility] Last Admin: 12/28/20 05:01 Dose: 75 mcg Documented by: Metoprolol Tartrate (Metoprolol Tartrate 50 Mg Tab) 12.5 mg PO BID [facility] Last Admin: 12/28/20 09:35 Dose: 12.5 mg Documented by: Midodrine (Midodrine 2.5 Mg Tab) 2.5 mg PO BID [facility] Last Admin: 12/28/20 09:35 Dose: 2.5 mg Documented by: Mometasone Furoate/Formoterol Fumar (Formoterol/Mometasone 100-5 Mcg 8.8 Gm Inhaler) 2 puff IH BID [facility] Last Admin: 12/28/20 09:36 Dose: 2 puff Documented by: Multivitamins/Minerals/Vitamin C (Multivitamin Tab) 1 tab PO ASDIRECTED ALEM Levalbuterol Hcl [ Xopenex] 0.63 Mg/3 Ml 1 puff INH BID [facility]LE[facility] Ondansetron HCl (Ondansetron 4 Mg/2 Ml Sdv) 4 mg IVPUSH Q6H PRN PRN Reason: Nausea/Vomiting Oxycodone/Acetaminophen (Acetaminophen/Oxycodone 325-5 Mg Tab) 2 tab PO Q6HR PRN PRN Reason: Pain Last Admin: 12/27/20 14:57 Dose: 2 tab Documented by: Sodium Chloride (Sodium Chloride 0.9% 10 Ml Syringe) 10 ml FLUSH ASDIRECTED PRN PRN Reason: Keep Vein Open Temazepam (Temazepam 15 Mg Cap) 15 mg PO BEDTIME PRN PRN Reason: Sleep Tiotropium [place] (Tiotropium Inhaler 18 Mcg Inhalation Powder Cap Kit Of 5) 18 mcg INH DAILY [facility] Last Admin: 12/28/20 09:40 Dose: 1 puff Documented by: Discontinued Medications Adenosine (Adenosine 6 Mg/2 Ml Sdv) 6 mg IVPUSH NOW ONE Stop: 12/27/20 11:25 Last Admin: 12/27/20 11:34 Dose: 6 mg Documented by: Adenosine (Adenosine 6 Mg/2 Ml Sdv) 12 mg IVPUSH NOW ONE Stop: 12/27/20 11:37 Last Admin: 12/27/20 11:39 Dose: 12 mg Documented by: Diltiazem HCl (Diltiazem 25 Mg/5 Ml Sdv) 20 mg IVPUSH ONETIME ONE Stop: 12/27/20 11:44 Last Admin: 12/27/20 11:45 Dose: 20 mg Documented by: Diltiazem HCl 125 mg/ Sodium (Chloride) 125 mls @ 5 mls/hr IV TITRATE [facility]; Protocol Last Admin: 12/27/20 13:20 Dose: 5 mg/hr, 5 mls/hr Documented by: - Exam Quality Assessment: Denies: Supplemental Oxygen General: Reports: Alert, Oriented Neck: Reports: Supple Lungs: Reports: Clear to Auscultation, Normal Respiratory Effort Cardiovascular: Reports: Irregular Rhythm. Denies: Tachycardia GI/Abdominal Exam: Normal Bowel Sounds, Soft, Non-Tender Psy/Mental Status: Reports: Alert, Normal Affect, Normal Mood
[2020-12-28] MEDS ORDERED: LEVALBUTEROL HCL 0.63 MG/3 ML INH SCH (21:00)
== END 2020-12-28 11:30 | disposition home or self-care (01) ==
LOC: DL.ED 11:09 → DL.MS 14:23
PROVIDERS: ADMIT Internal Medicine; ATTEND Internal Medicine
DX: R00.0 Tachycardia, unspecified (principal); I48.91 Unspecified atrial fibrillation; E78.00 Pure hypercholesterolemia, unspecified; I10 Essential (primary) hypertension; I48.92 Unspecified atrial flutter; J44.9 Chronic obstructive pulmonary disease, unspecified; I95.1 Orthostatic hypotension; Z79.01 Long term (current) use of anticoagulants; Z98.890 Other specified postprocedural states; Z95.2 Presence of prosthetic heart valve; Z79.899 Other long term (current) drug therapy; Z79.82 Long term (current) use of aspirin
CPT/HCPCS: 36415; 80053; 84484; 85025; 93005; 96365; 96372; 96375; 96376; 99285-25; A9270-GY; G0378; J0153; J1644; J3490

== ENCOUNTER 2021-05-14 10:20 | Inpatient (IN) | payer MEDICARE, OTHER ==
[2021-05-14] MEDS ORDERED: Diltiazem 25 MG/5 ML SDV IVPUSH ONE (10:49)
[2021-05-14] MEDS ORDERED: Sodium Chloride 0.9% 1,000 ML IV ONE (10:57)
[2021-05-14] MEDS ORDERED: Diltiazem 125 MG in Sodium Chloride 0.9% 100 ML IV SCH ×2 (11:00→14:00)
[2021-05-14 11:30] LABS: ANION GAP 14.7 mEq/L (7-13)
[2021-05-14 11:56] LABS: CORONAVIRUS COVID-19 NAA NEGATIVE (NEGATIVE)
[2021-05-14] MEDS ORDERED: Albuterol/Ipratropium 3.0-0.5 MG/3 ML Neb Soln NEB PRN (13:43)
[2021-05-14] MEDS ORDERED: Acetaminophen/oxyCODONE 325-5 MG Tab PO PRN (13:44)
[2021-05-14] MEDS ORDERED: Ondansetron 4 MG Tab.DIS PO PRN (13:47)
[2021-05-14] MEDS ORDERED: Docusate Sodium 100 MG Cap PO PRN (13:47)
[2021-05-14] MEDS: Heparin Sodium 5,000 Units/ML Vial SUBCUT SCH ×2 (14:55→21:24)
[2021-05-14] MEDS: methylPREDNISolone Sodium Succinate 40 MG/1 ML SDV IVPUSH SCH ×2 (14:55→21:24)
[2021-05-14] MEDS: Pregabalin 75 MG Cap PO SCH ×2 (15:57→21:22)
[2021-05-14] MEDS: Multivitamin Tab PO SCH (15:58)
[2021-05-14] MEDS: Albuterol/Ipratropium 3.0-0.5 MG/3 ML Neb Soln NEB SCH (18:57)
[2021-05-14] MEDS: Budesonide 0.5 MG/2 ML Neb Susp NEB SCH (18:57)
[2021-05-14] MEDS ORDERED: Temazepam 15 MG Cap PO PRN (21:00)
[2021-05-14] MEDS: Midodrine 2.5 MG Tab PO SCH (21:22)
[2021-05-14] MEDS: Metoprolol Tartrate 50 MG Tab PO SCH (21:22)
[2021-05-15] MEDS ORDERED: Midodrine 2.5 MG Tab PO ONE (00:36)
[2021-05-15] MEDS: Albuterol/Ipratropium 3.0-0.5 MG/3 ML Neb Soln NEB SCH ×6 (01:00→23:26)
[2021-05-15] MEDS ORDERED: Sodium Chloride 0.9% 500 ML IV ONE (02:45)
[2021-05-15] MEDS: methylPREDNISolone Sodium Succinate 40 MG/1 ML SDV IVPUSH SCH ×3 (06:21→20:59)
[2021-05-15] MEDS: Heparin Sodium 5,000 Units/ML Vial SUBCUT SCH ×3 (06:21→20:59)
[2021-05-15] MEDS: Levothyroxine 75 MCG Tab PO SCH (06:29)
[2021-05-15] MEDS: Budesonide 0.5 MG/2 ML Neb Susp NEB SCH (08:46)
[2021-05-15] MEDS ORDERED: Folic Acid 1 MG Tab PO SCH (09:00)
[2021-05-15] MEDS ORDERED: Ferrous Sulfate 325 MG Tab PO SCH (09:00)
[2021-05-15] MEDS ORDERED: Aspirin 81 MG Tab.EC PO SCH (09:00)
[2021-05-15] MEDS: Pregabalin 75 MG Cap PO SCH ×3 (09:53→20:59)
[2021-05-15] MEDS: Metoprolol Tartrate 50 MG Tab PO SCH (09:53)
[2021-05-15] MEDS: Midodrine 2.5 MG Tab PO SCH ×2 (09:53→20:59)
[2021-05-15] MEDS: Multivitamin Tab PO SCH (09:53)
[2021-05-15] MEDS ORDERED: Digoxin 500 MCG/2 ML Amp IVPUSH ONE (10:08)
[2021-05-15] MEDS ORDERED: Water For Injection, Sterile 20 ML ONE (10:43)
[2021-05-15] MEDS: Sodium Chloride 0.9% 10 ML Syringe FLUSH PRN ×3 (10:57→14:07)
[2021-05-15] MEDS ORDERED: Amiodarone 150 MG/3 ML SDV IVPUSH ONE (12:43)
[2021-05-15] MEDS ORDERED: Diltiazem 25 MG/5 ML SDV IVPUSH ONE (12:47)
[2021-05-15] MEDS: Amiodarone 200 MG Tab PO SCH ×2 (13:07→20:59)
[2021-05-15] MEDS: Aspirin 81 MG Tab.EC PO SCH (13:09)
[2021-05-15] MEDS: Azithromycin 250 MG Tab PO SCH (14:05)
[2021-05-15] MEDS ORDERED: Digoxin 250 MCG Tab PO ONE (16:30)
[2021-05-16] MEDS: Albuterol/Ipratropium 3.0-0.5 MG/3 ML Neb Soln NEB SCH ×5 (04:09→18:18)
[2021-05-16] MEDS: Levothyroxine 75 MCG Tab PO SCH (05:52)
[2021-05-16] MEDS: methylPREDNISolone Sodium Succinate 40 MG/1 ML SDV IVPUSH SCH ×3 (05:52→21:31)
[2021-05-16] MEDS: Heparin Sodium 5,000 Units/ML Vial SUBCUT SCH ×3 (05:52→21:31)
[2021-05-16] MEDS: Amiodarone 200 MG Tab PO SCH ×2 (08:46→21:30)
[2021-05-16] MEDS: Aspirin 81 MG Tab.EC PO SCH (08:47)
[2021-05-16] MEDS: Pregabalin 75 MG Cap PO SCH ×3 (08:47→21:30)
[2021-05-16] MEDS: Azithromycin 250 MG Tab PO SCH (08:47)
[2021-05-16] MEDS: Multivitamin Tab PO SCH (08:47)
[2021-05-16] MEDS: Midodrine 2.5 MG Tab PO SCH ×2 (08:47→21:30)
[2021-05-16 10:15] LABS: ANION GAP 16.3 mEq/L (7-13)
[2021-05-16] MEDS: Digoxin 250 MCG Tab PO SCH (10:19)
[2021-05-16] MEDS ORDERED: Diltiazem 25 MG/5 ML SDV IVPUSH ONE (15:00)
[2021-05-16] MEDS: Diltiazem IR 30 MG Tab PO SCH ×2 (17:11→23:33)
[2021-05-17] MEDS: Albuterol/Ipratropium 3.0-0.5 MG/3 ML Neb Soln NEB SCH ×3 (05:11→10:31)
[2021-05-17] MEDS: Heparin Sodium 5,000 Units/ML Vial SUBCUT SCH (05:32)
[2021-05-17] MEDS: methylPREDNISolone Sodium Succinate 40 MG/1 ML SDV IVPUSH SCH (05:32)
[2021-05-17] MEDS: Levothyroxine 75 MCG Tab PO SCH (05:33)
[2021-05-17] MEDS: Diltiazem IR 30 MG Tab PO SCH ×2 (05:33→12:13)
[2021-05-17] MEDS: Sodium Chloride 0.9% 10 ML Syringe FLUSH PRN (05:39)
[2021-05-17] MEDS: Azithromycin 250 MG Tab PO SCH (10:17)
[2021-05-17] MEDS: Multivitamin Tab PO SCH (10:18)
[2021-05-17] MEDS: Aspirin 81 MG Tab.EC PO SCH (10:18)
[2021-05-17] MEDS: Amiodarone 200 MG Tab PO SCH (10:18)
[2021-05-17] MEDS: Pregabalin 75 MG Cap PO SCH (10:18)
[2021-05-17] MEDS: Midodrine 2.5 MG Tab PO SCH (10:18)
[2021-05-17] MEDS: Digoxin 250 MCG Tab PO SCH (10:20)
[2021-05-17 15:28] VITALS: BP 100/65; PULSE 92
== END 2021-05-17 14:05 | disposition home or self-care (01) | DRG 189 ==
LOC: DL.ED 10:20 → UNDOADMOB 12:45 → DL.MS 12:45 → INTOOBSV 05-16 09:26 → OBSVTOIN 05-16 09:26
PROVIDERS: ADMIT Internal Medicine; ATTEND Hospitalist
DX: J96.21 Acute and chronic respiratory failure with hypoxia (principal); I48.91 Unspecified atrial fibrillation; J96.01 Acute respiratory failure with hypoxia; J44.1 Chronic obstructive pulmonary disease with (acute) exacerbation; N17.9 Acute kidney failure, unspecified; H54.7 Unspecified visual loss; I48.0 Paroxysmal atrial fibrillation; E78.00 Pure hypercholesterolemia, unspecified; I10 Essential (primary) hypertension; Z95.2 Presence of prosthetic heart valve; Z85.038 Personal history of other malignant neoplasm of large intestine; Z79.52 Long term (current) use of systemic steroids; Z85.118 Personal history of other malignant neoplasm of bronchus and lung; M19.90 Unspecified osteoarthritis, unspecified site; Z79.82 Long term (current) use of aspirin; Z98.49 Cataract extraction status, unspecified eye; Z79.899 Other long term (current) drug therapy; Z87.891 Personal history of nicotine dependence; I95.9 Hypotension, unspecified; Z20.822 Contact with and (suspected) exposure to COVID-19
CPT/HCPCS: 0240U; 36415; 71045; 76770; 80048; 80053; 80162; 81001; 83605; 83735; 83880; 84443; 84484; 85025; 85027; 87040; 93005; 93010; 94640; 94762; 96374; 99285; A9270-GY; J1160; J1644; J2920; J3490; J7030; J7040; J7620-GY

== ENCOUNTER 2021-09-26 18:16 | Emergency (ER) | payer MEDICARE, OTHER ==
[2021-09-26] MEDS ORDERED: Sodium Chloride 0.9% 10 ML Syringe FLUSH PRN (18:27)
[2021-09-26 19:24] LABS: ANION GAP 8.2 mEq/L (7-13)
[2021-09-26] MEDS ORDERED: cefTRIAXone 1 GM in Sodium Chloride 0.9% 50 ML IV ONE (20:28)
[2021-09-26] MEDS ORDERED: Albuterol 0.083% 2.5 MG/3 ML Neb Soln NEB ONE (20:29)
[2021-09-26 21:29] VITALS: BP 91/62; PULSE 66
== END 2021-09-26 22:15 ==
LOC: DL.ED 18:16
DX: J18.9 Pneumonia, unspecified organism (principal); J44.9 Chronic obstructive pulmonary disease, unspecified; R62.7 Adult failure to thrive; R53.1 Weakness; I10 Essential (primary) hypertension; Z79.899 Other long term (current) drug therapy; Z79.82 Long term (current) use of aspirin; Z20.822 Contact with and (suspected) exposure to COVID-19
CPT/HCPCS: 36415; 71045; 80053; 83605; 83735; 85025; 86140; 87040; 93005; 93010; 96365; 99285; 99285-25; J0696; J3490; J7613-GY; U0002

== ENCOUNTER 2022-01-17 15:44 | Inpatient (IN) | payer MEDICARE, OTHER ==
[2022-01-17 16:35] LABS: CORONAVIRUS COVID-19 NAA NEGATIVE (NEGATIVE); RESPIRATORY SYNCYTIAL VIR NAA NEGATIVE (NEGATIVE)
[2022-01-17] MEDS ORDERED: Sodium Chloride 0.9% 1,000 ML IV ONE (16:48)
[2022-01-17] MEDS ORDERED: cefTRIAXone 2 GM in Sodium Chloride 0.9% 100 ML IV ONE (16:48)
[2022-01-17] MEDS ORDERED: Albuterol/Ipratropium 3.0-0.5 MG/3 ML Neb Soln NEB ONE (16:48)
[2022-01-17] MEDS ORDERED: Azithromycin 500 MG in Sodium Chloride 0.9% 250 ML IV ONE (16:49)
[2022-01-17 16:54] LABS: ANION GAP 10.2 mEq/L (7-13)
[2022-01-17] MEDS ORDERED: SODIUM CHLORIDE 0.9% IV ONE (17:36)
[2022-01-17] MEDS ORDERED: DIGOXIN IMMUNE FAB IV ONE (17:36)
[2022-01-17] MEDS ORDERED: Sodium Chloride 0.9% 50 ML ONE (18:57)
[2022-01-17] MEDS ORDERED: Flumazenil 0.1 MG/ML 5 ML MDV IVPUSH PRN (21:59)
[2022-01-17] MEDS ORDERED: LORazepam 2 MG/ML SDV IVPUSH ONE (21:59)
[2022-01-17] MEDS ORDERED: SODIUM CHLORIDE 0.9% IV SCH (23:00)
[2022-01-17] MEDS ORDERED: VANCOMYCIN IV SCH (23:00)
[2022-01-17] MEDS ORDERED: Acetaminophen/oxyCODONE 325-5 MG Tab PO PRN (23:02)
[2022-01-17] MEDS ORDERED: Sodium Chloride 0.65% Nasal Spray 45 ML Bottle NASBOTH PRN (23:02)
[2022-01-17] MEDS ORDERED: Vancomycin 2 GM in Sodium Chloride 0.9% 500 ML IV ONE (23:30)
[2022-01-18] MEDS: Piperacillin/Tazobactam 3.375 GM in Sodium Chloride 0.9% 100 ML IV SCH ×2 (00:03→10:44)
[2022-01-18] MEDS ORDERED: PIPERACILLIN IV SCH (06:30)
[2022-01-18] MEDS ORDERED: TAZOBACTAM IV SCH (06:30)
[2022-01-18] MEDS ORDERED: SODIUM CHLORIDE 0.9% IV SCH (06:30)
[2022-01-18] MEDS ORDERED: Sodium Chloride 0.9% 1,000 ML IV SCH (07:30)
[2022-01-18] MEDS: Piperacillin/Tazobactam 2.25 GM in Sodium Chloride 0.9% 50 ML IV SCH ×3 (08:34→18:00)
[2022-01-18] MEDS ORDERED: LEVALBUTEROL HCL 0.63 MG/3 ML IH SCH (09:00)
[2022-01-18] MEDS ORDERED: predniSONE 10 MG Tab PO SCH (09:00)
[2022-01-18] MEDS: Formoterol/Mometasone 200-5 MCG 8.8 GM Inhaler IH SCH ×2 (09:36→20:19)
[2022-01-18] MEDS: Aspirin 81 MG Tab.EC PO SCH (09:37)
[2022-01-18] MEDS: predniSONE 20 MG Tab PO SCH (09:37)
[2022-01-18] MEDS: Docusate Sodium 100 MG Cap PO SCH (09:37)
[2022-01-18] MEDS: Folic Acid 1 MG Tab PO SCH (09:37)
[2022-01-18] MEDS: Tiotropium Inhaler 18 MCG Inhalation Powder Cap Kit of 5 INH SCH (09:40)
[2022-01-18 09:57] LABS: ANION GAP 13.9 mEq/L (7-13)
[2022-01-18 16:38] LABS: AMPHETAMINES,URINE NEGATIVE (NEGATIVE); BARBITURATES,URINE NEGATIVE (NEGATIVE); BENZODIAZEPINE,URINE POSITIVE (NEGATIVE); MDMA (ECSTASY), URINE NEGATIVE (NEGATIVE); METHADONE,URINE NEGATIVE (NEGATIVE); METHAMPHETAMINES,URINE POSITIVE (NEGATIVE); OPIATES,URINE NEGATIVE (NEGATIVE); OXYCODONE,URINE POSITIVE (NEGATIVE); PHENCYCLIDINE,URINE NEGATIVE (NEGATIVE); TCA,URINE NEGATIVE (NEGATIVE)
[2022-01-18] MEDS: Midodrine 2.5 MG Tab PO SCH (17:37)
[2022-01-18] MEDS ORDERED: Albuterol/Ipratropium 3.0-0.5 MG/3 ML Neb Soln NEB PRN (20:28)
[2022-01-19] MEDS: Piperacillin/Tazobactam 2.25 GM in Sodium Chloride 0.9% 50 ML IV SCH ×4 (01:07→18:04)
[2022-01-19 06:55] LABS: ANION GAP 11.1 mEq/L (7-13)
[2022-01-19] MEDS: predniSONE 20 MG Tab PO SCH (08:47)
[2022-01-19] MEDS: Docusate Sodium 100 MG Cap PO SCH (08:47)
[2022-01-19] MEDS: Midodrine 2.5 MG Tab PO SCH ×2 (08:47→18:04)
[2022-01-19] MEDS: Aspirin 81 MG Tab.EC PO SCH (08:47)
[2022-01-19] MEDS: Folic Acid 1 MG Tab PO SCH (08:47)
[2022-01-19] MEDS: Formoterol/Mometasone 200-5 MCG 8.8 GM Inhaler IH SCH ×2 (08:49→20:34)
[2022-01-19] MEDS: Tiotropium Inhaler 18 MCG Inhalation Powder Cap Kit of 5 INH SCH (08:49)
[2022-01-20] MEDS: Piperacillin/Tazobactam 2.25 GM in Sodium Chloride 0.9% 50 ML IV SCH ×4 (00:05→17:34)
[2022-01-20 07:19] LABS: ANION GAP 11.7 mEq/L (7-13)
[2022-01-20] MEDS: Formoterol/Mometasone 200-5 MCG 8.8 GM Inhaler IH SCH ×2 (09:18→20:57)
[2022-01-20] MEDS: Midodrine 2.5 MG Tab PO SCH ×2 (09:18→17:33)
[2022-01-20] MEDS: Docusate Sodium 100 MG Cap PO SCH (09:18)
[2022-01-20] MEDS: predniSONE 20 MG Tab PO SCH (09:18)
[2022-01-20] MEDS: Folic Acid 1 MG Tab PO SCH (09:18)
[2022-01-20] MEDS: Aspirin 81 MG Tab.EC PO SCH (09:19)
[2022-01-20] MEDS: Tiotropium Inhaler 18 MCG Inhalation Powder Cap Kit of 5 INH SCH (09:22)
[2022-01-20] MEDS: Multivitamin Tab PO SCH (09:23)
[2022-01-21] MEDS: Piperacillin/Tazobactam 2.25 GM in Sodium Chloride 0.9% 50 ML IV SCH ×2 (00:23→05:30)
[2022-01-21] MEDS: Midodrine 2.5 MG Tab PO SCH (08:14)
[2022-01-21] MEDS: Folic Acid 1 MG Tab PO SCH (08:14)
[2022-01-21] MEDS: Multivitamin Tab PO SCH (08:14)
[2022-01-21] MEDS: Aspirin 81 MG Tab.EC PO SCH (08:14)
[2022-01-21] MEDS: predniSONE 20 MG Tab PO SCH (08:14)
[2022-01-21] MEDS: Docusate Sodium 100 MG Cap PO SCH (08:14)
[2022-01-21] MEDS: Formoterol/Mometasone 200-5 MCG 8.8 GM Inhaler IH SCH (08:16)
[2022-01-21] MEDS: Tiotropium Inhaler 18 MCG Inhalation Powder Cap Kit of 5 INH SCH (08:16)
[2022-01-21 08:17] VITALS: BP 99/62; PULSE 69
[2022-01-22] MEDS ORDERED: predniSONE 10 MG Tab PO SCH (09:00)
== END 2022-01-21 11:00 | disposition home or self-care (01) | DRG 947 ==
LOC: DL.ED 15:44 → DL.MS 17:54
PROVIDERS: ADMIT Internal Medicine; ATTEND Internal Medicine
DX: R53.1 Weakness (principal); J18.9 Pneumonia, unspecified organism; I13.0 Hypertensive heart and chronic kidney disease with heart failure and stage 1 through stage 4 chronic kidney disease, or unspecified chronic kidney disease; J44.0 Chronic obstructive pulmonary disease with (acute) lower respiratory infection; I50.32 Chronic diastolic (congestive) heart failure; J96.10 Chronic respiratory failure, unspecified whether with hypoxia or hypercapnia; T46.0X5A Adverse effect of cardiac-stimulant glycosides and drugs of similar action, initial encounter; Z20.822 Contact with and (suspected) exposure to COVID-19; F15.10 Other stimulant abuse, uncomplicated; N18.9 Chronic kidney disease, unspecified; D53.9 Nutritional anemia, unspecified; E88.09 Other disorders of plasma-protein metabolism, not elsewhere classified; N18.30 Chronic kidney disease, stage 3 unspecified; D63.1 Anemia in chronic kidney disease; D50.9 Iron deficiency anemia, unspecified; M19.90 Unspecified osteoarthritis, unspecified site; E03.9 Hypothyroidism, unspecified; R73.9 Hyperglycemia, unspecified; I25.10 Atherosclerotic heart disease of native coronary artery without angina pectoris; E78.5 Hyperlipidemia, unspecified; H54.7 Unspecified visual loss; I95.9 Hypotension, unspecified; E78.00 Pure hypercholesterolemia, unspecified; G62.9 Polyneuropathy, unspecified; Z86.14 Personal history of Methicillin resistant Staphylococcus aureus infection; Z87.891 Personal history of nicotine dependence; Z85.038 Personal history of other malignant neoplasm of large intestine; Z79.01 Long term (current) use of anticoagulants; Z95.2 Presence of prosthetic heart valve; Z99.81 Dependence on supplemental oxygen; Z79.82 Long term (current) use of aspirin; Z79.899 Other long term (current) drug therapy; Z79.52 Long term (current) use of systemic steroids; Z85.118 Personal history of other malignant neoplasm of bronchus and lung; Z98.49 Cataract extraction status, unspecified eye
CPT/HCPCS: 0241U; 36415; 71045; 80048; 80053; 80151; 80162; 80202; 80305; 80307; 81001; 82306; 82607; 82746; 82947; 83605; 83735; 84145; 84207; 84439; 84443; 84484; 85025; 86140; 87040; 93005; 94640; 97161; 97165; 99233; 99238; A9270-GY; J0456; J0696; J1162; J2060; J2543; J3370; J7030; J7040; J7050; J7512; J7620-GY

== ENCOUNTER 2023-02-18 18:17 | Inpatient (IN) | payer MEDICAID, MEDICARE ==
[2023-02-18 18:52] LABS: HEMATOCRIT 33.2 % (40.0-54.0); HEMOGLOBIN 10.5 g/dL (14.0-18.0); MEAN CORPUSCULAR HEMOGLOBIN 30.6 pg (27.0-34.0); MEAN CORPUSCULAR HGB CONC 31.6 g/dL (33.0-35.0); MEAN CORPUSCULAR VOLUME 96.8 fL (80-100); PLATELET COUNT,PLT 235 10^3/uL (150-450); RED BLOOD CELL COUNT 3.43 10^6/uL (4.6-6.2); WHITE BLOOD CELL COUNT,WBC 8.8 10^3/uL (5.0-10.0)
[2023-02-18] MEDS: Sodium Chloride 0.9% 10 ML Syringe FLUSH PRN (18:53)
[2023-02-18 19:09] LABS: ALANINE AMINOTRANSFERASE,ALT 24 U/L (16-63); ALKALINE PHOSPHATASE 86 U/L (46-116); ANION GAP 11.1 mEq/L (7-13); ASPARTATE AMNIOTRANSFERASE,AST 36 U/L (15-37); BLOOD UREA NITROGEN,BUN 25 mg/dL (7-18); BUN/CREATININE RATIO 20.8 (No establ ref range); C-REACTIVE PROTEIN 18.29 ng/dL (<=0.50); CALCIUM 8.3 mg/dL (8.5-10.1); CARBON DIOXIDE,CO2 32 mmol/L (21-32); CHLORIDE,CL 96 mmol/L (98-107); EST CRCL DRUG DOSING (CG) 38.87 mL/min; GLUCOSE RANDOM 106 mg/dL (70-99); POTASSIUM,K 4.1 mmol/L (3.5-5.1); PROTEIN TOTAL,TP 7.1 g/dL (6.4-8.2); SODIUM,NA 135 mmol/L (136-145)
[2023-02-18 19:11] LABS: A/G RATIO 0.39; ESTIMATED GFR 65 mL/min (>=60); ETHANOL BLOOD MEDICAL < 3 mg/dL (0)
[2023-02-18 19:12] LABS: LYMPHOCYTES PERCENT MAN 9 % (20-50); MONOCYTES PERCENT MAN 14 % (2-8); SEG NEUTROPHILS PERCENT MAN 77 % (42-75)
[2023-02-18 19:15] LABS: PROTHROMBIN TIME 10.2 SEC (9.0-12.0)
[2023-02-18 19:19] LABS: B-TYPE NATRIURETIC PEPTIDE,BNP 94 pg/ml (0-100)
[2023-02-18 19:25] LABS: CORONAVIRUS COVID-19 NAA NEGATIVE (NEGATIVE); INFLUENZA A NAA NEGATIVE (NEGATIVE); INFLUENZA B NAA NEGATIVE (NEGATIVE); RESPIRATORY SYNCYTIAL VIR NAA NEGATIVE (NEGATIVE)
[2023-02-18] MEDS ORDERED: Sodium Chloride 0.9% 1,000 ML IV ONE (19:30)
[2023-02-18] MEDS ORDERED: Azithromycin 500 MG in Sodium Chloride 0.9% 250 ML IV ONE (19:31)
[2023-02-18] MEDS ORDERED: cefTRIAXone 2 GM Vial IVPUSH ONE (19:31)
[2023-02-18] MEDS ORDERED: Levofloxacin/Dextrose 5%-Water 750 MG in Premix Bag 1 BAG IV ONE (19:33)
[2023-02-18] MEDS ORDERED: Polyethylene Glycol 3350 Powder 17 GM Packet PO PRN (21:55)
[2023-02-18] MEDS ORDERED: Ondansetron 4 MG/2 ML SDV IVPUSH PRN (21:55)
[2023-02-18] MEDS ORDERED: oxyCODONE 5 MG Tab PO PRN (21:55)
[2023-02-18] MEDS ORDERED: Docusate Sodium 100 MG Cap PO PRN (21:55)
[2023-02-18] MEDS ORDERED: Albuterol/Ipratropium 3.0-0.5 MG/3 ML Neb Soln NEB PRN (21:55)
[2023-02-18] MEDS ORDERED: Temazepam 15 MG Cap PO PRN (21:55)
[2023-02-18] MEDS ORDERED: Acetaminophen 325 MG Tab PO PRN (21:55)
[2023-02-18] MEDS ORDERED: Sodium Chloride 0.65% Nasal Spray 45 ML Bottle NASBOTH PRN (21:59)
[2023-02-18] MEDS ORDERED: Multivitamin Tab PO SCH (22:15)
[2023-02-18] MEDS: Formoterol/Mometasone 200-5 MCG 8.8 GM Inhaler IH SCH (22:55)
[2023-02-18] MEDS: Digoxin 250 MCG Tab PO SCH (22:55)
[2023-02-18] MEDS: Enoxaparin 40 MG/0.4 ML Syringe SUBCUT SCH (22:55)
[2023-02-18] MEDS: Aspirin 81 MG Tab.EC PO SCH (22:55)
[2023-02-18] MEDS: Sodium Chloride 0.9% 1,000 ML IV SCH (23:13)
[2023-02-18] MEDS: Pregabalin 75 MG Cap PO SCH (23:13)
[2023-02-18] MEDS: Azithromycin 500 MG in Sodium Chloride 0.9% 250 ML IV SCH (23:13)
[2023-02-18] MEDS: cefTRIAXone 1 GM Vial IVPUSH SCH (23:13)
[2023-02-19] MEDS: Levothyroxine 75 MCG Tab PO SCH (05:01)
[2023-02-19] MEDS: Formoterol/Mometasone 200-5 MCG 8.8 GM Inhaler IH SCH ×4 (05:21→17:15)
[2023-02-19 05:52] LABS: HEMATOCRIT 28.5 % (40.0-54.0); HEMOGLOBIN 8.9 g/dL (14.0-18.0); MEAN CORPUSCULAR HEMOGLOBIN 30.4 pg (27.0-34.0); MEAN CORPUSCULAR HGB CONC 31.2 g/dL (33.0-35.0); MEAN CORPUSCULAR VOLUME 97.3 fL (80-100); PLATELET COUNT,PLT 210 10^3/uL (150-450); RED BLOOD CELL COUNT 2.93 10^6/uL (4.6-6.2); WHITE BLOOD CELL COUNT,WBC 7.2 10^3/uL (5.0-10.0)
[2023-02-19 05:54] LABS: MONOCYTES PERCENT AUTO 13.3 % (2-8); NEUTROPHILS PERCENT AUTO 70.3 % (42.2-75.2)
[2023-02-19 05:55] LABS: BASOPHILS PERCENT AUTO 3.1 % (0.0-1.0); EOSINOPHILS PERCENT AUTO 0.3 % (1.0-3.0)
[2023-02-19 06:06] LABS: CALCIUM 7.9 mg/dL (8.5-10.1); CREATININE 0.97 mg/dL (0.70-1.30); EST CRCL DRUG DOSING (CG) 47.41 mL/min
[2023-02-19 06:22] LABS: LYMPHOCYTES PERCENT MAN 14 % (20-50); MONOCYTES PERCENT MAN 10 % (2-8); SEG NEUTROPHILS PERCENT MAN 74 % (42-75)
[2023-02-19] MEDS ORDERED: Midodrine 2.5 MG Tab PO SCH (09:00)
[2023-02-19] MEDS ORDERED: Tiotropium Bromide 4 GM Inhalation Spray (2.5mcg/1 dose; 10 doses) INH SCH (09:00)
[2023-02-19 09:20] LABS: APPEARANCE,URINE CLEAR (CLEAR); BILIRUBIN,URINE NEGATIVE (NEGATIVE); COLOR,URINE YELLOW (YELLOW); GLUCOSE,URINE NEGATIVE (NEGATIVE); KETONES,URINE NEGATIVE (NEGATIVE); LEUKOCYTE ESTERASE,URINE NEGATIVE (NEGATIVE); NITRITE,URINE NEGATIVE (NEGATIVE); OCCULT BLOOD,URINE NEGATIVE (NEGATIVE); PROTEIN,URINE 30 (NEGATIVE)
[2023-02-19] MEDS: Enoxaparin 40 MG/0.4 ML Syringe SUBCUT SCH (09:30)
[2023-02-19 09:32] LABS: AMPHETAMINES,URINE POSITIVE (NEGATIVE); BARBITURATES,URINE NEGATIVE (NEGATIVE); BENZODIAZEPINE,URINE NEGATIVE (NEGATIVE); MDMA (ECSTASY), URINE NEGATIVE (NEGATIVE); METHADONE,URINE NEGATIVE (NEGATIVE); METHAMPHETAMINES,URINE POSITIVE (NEGATIVE); OPIATES,URINE POSITIVE (NEGATIVE); OXYCODONE,URINE POSITIVE (NEGATIVE); PHENCYCLIDINE,URINE NEGATIVE (NEGATIVE); TCA,URINE NEGATIVE (NEGATIVE)
[2023-02-19] MEDS: Saccharomyces Boulardii (Probiotic) 250 MG Cap PO SCH (09:33)
[2023-02-19] MEDS: Ferrous Sulfate 325 MG Tab PO SCH (09:33)
[2023-02-19] MEDS: Aspirin 81 MG Tab.EC PO SCH (09:34)
[2023-02-19] MEDS: Docusate Sodium 100 MG Cap PO SCH (09:34)
[2023-02-19] MEDS: Pregabalin 75 MG Cap PO SCH (09:35)
[2023-02-19] MEDS: Folic Acid 1 MG Tab PO SCH (09:35)
[2023-02-19] MEDS: Ascorbic Acid 500 MG Tab PO SCH (09:35)
[2023-02-19] MEDS: Amiodarone 200 MG Tab PO SCH ×2 (09:36→20:16)
[2023-02-19] MEDS: Digoxin 250 MCG Tab PO SCH (09:36)
[2023-02-19 09:43] LABS: AMORPHOUS SEDIMENT,URINE OCCASIONAL /HPF (NOT SEEN); MUCUS,URINE MANY /LPF (NOT SEEN)
[2023-02-19 09:44] LABS: RBC,URINE 0-5 /HPF (0-5); WBC,URINE 0-5 /HPF (0-5/HPF)
[2023-02-19 09:45] LABS: EPITHELIAL CELLS,URINE FEW /HPF (NOT SEEN)
[2023-02-19 09:49] LABS: BACTERIA,URINE FEW /HPF (0-FEW/HPF)
[2023-02-19 10:03] LABS: HYALINE CASTS,URINE FEW
[2023-02-19 10:04] LABS: FINE GRANULAR CASTS,URINE RARE /LPF (NOT SEEN)
[2023-02-19] MEDS: Albuterol/Ipratropium 3.0-0.5 MG/3 ML Neb Soln NEB SCH ×4 (10:17→17:15)
[2023-02-19] MEDS: Tiotropium Bromide 4 GM Inhalation Spray (2.5mcg/1 dose; 10 doses) INH SCH (10:17)
[2023-02-19] MEDS ORDERED: Lactated Ringers 1,000 ML IV ONE (11:17)
[2023-02-19] MEDS ORDERED: predniSONE 20 MG Tab PO ONE (11:49)
[2023-02-19] MEDS: Sodium Chloride 0.9% 1,000 ML IV SCH (14:58)
[2023-02-19] MEDS: Midodrine 5 MG Tab PO SCH (17:16)
[2023-02-19] MEDS: Pregabalin 50 MG Cap PO SCH (20:16)
[2023-02-19] MEDS: Famotidine 20 MG Tab PO SCH (20:16)
[2023-02-19] MEDS ORDERED: Famotidine 20 MG Tab PO SCH (21:00)
[2023-02-19] MEDS: cefTRIAXone 1 GM Vial IVPUSH SCH (21:51)
[2023-02-19] MEDS: Azithromycin 500 MG in Sodium Chloride 0.9% 250 ML IV SCH (21:53)
[2023-02-20] MEDS: Albuterol/Ipratropium 3.0-0.5 MG/3 ML Neb Soln NEB SCH ×5 (00:49→17:34)
[2023-02-20] MEDS: Levothyroxine 75 MCG Tab PO SCH (05:05)
[2023-02-20] MEDS: Sodium Chloride 0.9% 1,000 ML IV SCH ×2 (05:41→19:57)
[2023-02-20] MEDS: Formoterol/Mometasone 200-5 MCG 8.8 GM Inhaler IH SCH ×3 (05:44→17:34)
[2023-02-20] MEDS: Tiotropium Bromide 4 GM Inhalation Spray (2.5mcg/1 dose; 10 doses) INH SCH (05:45)
[2023-02-20 05:58] LABS: BASOPHILS PERCENT AUTO 4.2 % (0.0-1.0); HEMATOCRIT 27.4 % (40.0-54.0); HEMOGLOBIN 8.6 g/dL (14.0-18.0); LYMPHOCYTES PERCENT AUTO 7.6 % (20.5-50.1); MEAN CORPUSCULAR HEMOGLOBIN 30.7 pg (27.0-34.0); MEAN CORPUSCULAR HGB CONC 31.4 g/dL (33.0-35.0); MEAN CORPUSCULAR VOLUME 97.9 fL (80-100); MONOCYTES PERCENT AUTO 4.6 % (2-8); NEUTROPHILS PERCENT AUTO 83.6 % (42.2-75.2); PLATELET COUNT,PLT 218 10^3/uL (150-450)
[2023-02-20 06:22] LABS: A/G RATIO 0.38; ALBUMIN 1.6 g/dL (3.4-5.0); ANION GAP 8.5 mEq/L (7-13); BILIRUBIN TOTAL 0.3 mg/dL (0.2-1.0); C-REACTIVE PROTEIN 11.42 ng/dL (<=0.50); CALCIUM 8.2 mg/dL (8.5-10.1); CREATININE 0.9 mg/dL (0.70-1.30); EST CRCL DRUG DOSING (CG) 51.1 mL/min; MAGNESIUM 1.9 mg/dL (1.8-2.4); POTASSIUM,K 4.5 mmol/L (3.5-5.1); PROTEIN TOTAL,TP 5.8 g/dL (6.4-8.2)
[2023-02-20] MEDS: Midodrine 5 MG Tab PO SCH ×2 (08:17→17:04)
[2023-02-20] MEDS: Folic Acid 1 MG Tab PO SCH (08:17)
[2023-02-20] MEDS: Saccharomyces Boulardii (Probiotic) 250 MG Cap PO SCH (08:17)
[2023-02-20] MEDS: Aspirin 81 MG Tab.EC PO SCH (08:17)
[2023-02-20] MEDS: Digoxin 250 MCG Tab PO SCH (08:18)
[2023-02-20] MEDS: Pregabalin 50 MG Cap PO SCH ×2 (08:18→21:30)
[2023-02-20] MEDS: Amiodarone 200 MG Tab PO SCH ×2 (08:18→21:30)
[2023-02-20] MEDS: Loratadine 10 MG Tab PO SCH (08:18)
[2023-02-20] MEDS: Docusate Sodium 100 MG Cap PO SCH (08:18)
[2023-02-20] MEDS: Ferrous Sulfate 325 MG Tab PO SCH (08:18)
[2023-02-20] MEDS: Famotidine 20 MG Tab PO SCH ×2 (08:18→21:30)
[2023-02-20] MEDS: predniSONE 20 MG Tab PO SCH (08:18)
[2023-02-20] MEDS: Ascorbic Acid 500 MG Tab PO SCH (08:19)
[2023-02-20] MEDS: Enoxaparin 40 MG/0.4 ML Syringe SUBCUT SCH (08:21)
[2023-02-20] MEDS: cefTRIAXone 1 GM Vial IVPUSH SCH (21:30)
[2023-02-20] MEDS: Azithromycin 500 MG in Sodium Chloride 0.9% 250 ML IV SCH (21:31)
[2023-02-21] MEDS: Albuterol/Ipratropium 3.0-0.5 MG/3 ML Neb Soln NEB SCH ×6 (00:43→17:44)
[2023-02-21] MEDS: Levothyroxine 75 MCG Tab PO SCH (05:21)
[2023-02-21] MEDS: Formoterol/Mometasone 200-5 MCG 8.8 GM Inhaler IH SCH ×2 (06:01→16:59)
[2023-02-21] MEDS: Tiotropium Bromide 4 GM Inhalation Spray (2.5mcg/1 dose; 10 doses) INH SCH (06:01)
[2023-02-21 06:27] LABS: HEMATOCRIT 26.7 % (40.0-54.0); HEMOGLOBIN 8.1 g/dL (14.0-18.0); MEAN CORPUSCULAR HEMOGLOBIN 30.1 pg (27.0-34.0); MEAN CORPUSCULAR HGB CONC 30.3 g/dL (33.0-35.0); MEAN CORPUSCULAR VOLUME 99.3 fL (80-100); PLATELET COUNT,PLT 225 10^3/uL (150-450); RED BLOOD CELL COUNT 2.69 10^6/uL (4.6-6.2)
[2023-02-21 06:43] LABS: ALBUMIN 1.6 g/dL (3.4-5.0); ANION GAP 8.2 mEq/L (7-13); BILIRUBIN TOTAL 0.3 mg/dL (0.2-1.0); BUN/CREATININE RATIO 19.3 (No establ ref range); C-REACTIVE PROTEIN 5.57 ng/dL (<=0.50); CREATININE 0.88 mg/dL (0.70-1.30); EST CRCL DRUG DOSING (CG) 52.26 mL/min; MAGNESIUM 1.8 mg/dL (1.8-2.4); POTASSIUM,K 4.2 mmol/L (3.5-5.1); PROTEIN TOTAL,TP 5.3 g/dL (6.4-8.2)
[2023-02-21 06:44] LABS: BAND PERCENT MAN 1 %; LYMPHOCYTES PERCENT MAN 14 % (20-50); MONOCYTES PERCENT MAN 6 % (2-8); SEG NEUTROPHILS PERCENT MAN 79 % (42-75)
[2023-02-21 06:46] LABS: A/G RATIO 0.43
[2023-02-21] MEDS: Digoxin 250 MCG Tab PO SCH (08:48)
[2023-02-21] MEDS: Amiodarone 200 MG Tab PO SCH ×2 (08:48→20:45)
[2023-02-21] MEDS: Pregabalin 50 MG Cap PO SCH ×2 (08:49→20:45)
[2023-02-21] MEDS: Famotidine 20 MG Tab PO SCH ×2 (08:49→20:45)
[2023-02-21] MEDS: Midodrine 5 MG Tab PO SCH ×3 (08:49→17:13)
[2023-02-21] MEDS: predniSONE 20 MG Tab PO SCH (08:49)
[2023-02-21] MEDS: Ascorbic Acid 500 MG Tab PO SCH (08:50)
[2023-02-21] MEDS: Saccharomyces Boulardii (Probiotic) 250 MG Cap PO SCH (08:50)
[2023-02-21] MEDS: Ferrous Sulfate 325 MG Tab PO SCH (08:50)
[2023-02-21] MEDS: Enoxaparin 40 MG/0.4 ML Syringe SUBCUT SCH (08:51)
[2023-02-21] MEDS: Aspirin 81 MG Tab.EC PO SCH (08:51)
[2023-02-21] MEDS: Docusate Sodium 100 MG Cap PO SCH (08:51)
[2023-02-21] MEDS: Folic Acid 1 MG Tab PO SCH (08:51)
[2023-02-21] MEDS: Loratadine 10 MG Tab PO SCH (08:51)
[2023-02-21] MEDS: cefTRIAXone 1 GM Vial IVPUSH SCH (21:31)
[2023-02-21] MEDS: Azithromycin 500 MG in Sodium Chloride 0.9% 250 ML IV SCH (21:33)
[2023-02-22] MEDS: Albuterol/Ipratropium 3.0-0.5 MG/3 ML Neb Soln NEB SCH ×3 (05:53→12:30)
[2023-02-22] MEDS: Formoterol/Mometasone 200-5 MCG 8.8 GM Inhaler IH SCH (05:56)
[2023-02-22] MEDS: Tiotropium Bromide 4 GM Inhalation Spray (2.5mcg/1 dose; 10 doses) INH SCH (05:56)
[2023-02-22] MEDS: Levothyroxine 75 MCG Tab PO SCH (06:02)
[2023-02-22 06:34] LABS: BASOPHILS PERCENT AUTO 4.3 % (0.0-1.0); HEMATOCRIT 28.1 % (40.0-54.0); HEMOGLOBIN 8.8 g/dL (14.0-18.0); LYMPHOCYTES PERCENT AUTO 12.8 % (20.5-50.1); MEAN CORPUSCULAR HEMOGLOBIN 30.8 pg (27.0-34.0); MEAN CORPUSCULAR HGB CONC 31.3 g/dL (33.0-35.0); MEAN CORPUSCULAR VOLUME 98.3 fL (80-100); NEUTROPHILS PERCENT AUTO 76.9 % (42.2-75.2); PLATELET COUNT,PLT 255 10^3/uL (150-450); RED BLOOD CELL COUNT 2.86 10^6/uL (4.6-6.2); WHITE BLOOD CELL COUNT,WBC 4.7 10^3/uL (5.0-10.0)
[2023-02-22 07:02] LABS: ALBUMIN 1.8 g/dL (3.4-5.0); ANION GAP 7.8 mEq/L (7-13); BILIRUBIN TOTAL 0.3 mg/dL (0.2-1.0); BUN/CREATININE RATIO 23.5 (No establ ref range); C-REACTIVE PROTEIN 3.96 ng/dL (<=0.50); CALCIUM 8.3 mg/dL (8.5-10.1); CREATININE 0.85 mg/dL (0.70-1.30); EST CRCL DRUG DOSING (CG) 54.11 mL/min; MAGNESIUM 1.8 mg/dL (1.8-2.4); POTASSIUM,K 4.8 mmol/L (3.5-5.1); PROTEIN TOTAL,TP 5.9 g/dL (6.4-8.2)
[2023-02-22 07:08] LABS: A/G RATIO 0.44
[2023-02-22] MEDS: Sodium Chloride 0.9% 10 ML Syringe FLUSH PRN (09:25)
[2023-02-22] MEDS: Folic Acid 1 MG Tab PO SCH (09:27)
[2023-02-22] MEDS: Enoxaparin 40 MG/0.4 ML Syringe SUBCUT SCH (09:27)
[2023-02-22] MEDS: predniSONE 20 MG Tab PO SCH (09:27)
[2023-02-22] MEDS: Pregabalin 50 MG Cap PO SCH (09:27)
[2023-02-22] MEDS: Saccharomyces Boulardii (Probiotic) 250 MG Cap PO SCH (09:27)
[2023-02-22] MEDS: Famotidine 20 MG Tab PO SCH (09:28)
[2023-02-22] MEDS: Loratadine 10 MG Tab PO SCH (09:28)
[2023-02-22] MEDS: Midodrine 5 MG Tab PO SCH ×2 (09:28→12:13)
[2023-02-22] MEDS: Aspirin 81 MG Tab.EC PO SCH (09:28)
[2023-02-22] MEDS: Docusate Sodium 100 MG Cap PO SCH (09:29)
[2023-02-22] MEDS: Digoxin 250 MCG Tab PO SCH (09:29)
[2023-02-22] MEDS: Ascorbic Acid 500 MG Tab PO SCH (09:29)
[2023-02-22] MEDS: Amiodarone 200 MG Tab PO SCH (09:29)
[2023-02-22] MEDS: Ferrous Sulfate 325 MG Tab PO SCH (09:30)
[2023-02-22] MEDS ORDERED: Take Home: Amoxicillin/Clavulanate K 875-125 MG Tab, 6 Tab Pack PO ONE (12:24)
[2023-02-22] MEDS ORDERED: Take Home: predniSONE 20 MG, 4 Tab Pack PO ONE (12:25)
[2023-02-22 15:17] VITALS: BP 102/68; PULSE 70
== END 2023-02-22 13:49 | disposition home or self-care (01) | DRG 193 ==
LOC: DL.ED 18:17 → DL.MS 20:46
PROVIDERS: ADMIT Internal Medicine; ATTEND Internal Medicine
DX: J18.9 Pneumonia, unspecified organism (principal); J44.9 Chronic obstructive pulmonary disease, unspecified; I10 Essential (primary) hypertension; E43 Unspecified severe protein-calorie malnutrition; I50.32 Chronic diastolic (congestive) heart failure; I13.0 Hypertensive heart and chronic kidney disease with heart failure and stage 1 through stage 4 chronic kidney disease, or unspecified chronic kidney disease; Z20.822 Contact with and (suspected) exposure to COVID-19; J96.11 Chronic respiratory failure with hypoxia; J44.0 Chronic obstructive pulmonary disease with (acute) lower respiratory infection; J44.1 Chronic obstructive pulmonary disease with (acute) exacerbation; R64 Cachexia; C34.90 Malignant neoplasm of unspecified part of unspecified bronchus or lung; C18.9 Malignant neoplasm of colon, unspecified; Z68.1 Body mass index [BMI] 19.9 or less, adult; I25.10 Atherosclerotic heart disease of native coronary artery without angina pectoris; I48.91 Unspecified atrial fibrillation; G62.9 Polyneuropathy, unspecified; I07.1 Rheumatic tricuspid insufficiency; I27.20 Pulmonary hypertension, unspecified; N18.30 Chronic kidney disease, stage 3 unspecified; D63.1 Anemia in chronic kidney disease; E03.9 Hypothyroidism, unspecified; D50.9 Iron deficiency anemia, unspecified; M19.90 Unspecified osteoarthritis, unspecified site; R13.10 Dysphagia, unspecified; F15.90 Other stimulant use, unspecified, uncomplicated; F12.90 Cannabis use, unspecified, uncomplicated; E78.00 Pure hypercholesterolemia, unspecified; I95.9 Hypotension, unspecified; Z79.890 Hormone replacement therapy; Z79.82 Long term (current) use of aspirin; Z91.148 Patient's other noncompliance with medication regimen for other reason; Z79.899 Other long term (current) drug therapy; Z98.890 Other specified postprocedural states; Z87.891 Personal history of nicotine dependence; Z99.81 Dependence on supplemental oxygen; Z98.49 Cataract extraction status, unspecified eye; Z95.4 Presence of other heart-valve replacement; Z11.52 Encounter for screening for COVID-19
CPT/HCPCS: 0241U; 36415; 51798; 71045; 80048; 80053; 80305-QW; 80307; 81001; 83605; 83735; 83880; 84145; 84484; 85025; 85610; 85730; 86140; 93005; 93010; 94010; 94060; 94640; 94664; 94667; 94668; 94760; 96365; 97161-GP; 97165-GO; 99284; 99285-25; A9270-GY; J0456; J0696; J1650; J1956; J3490; J7030; J7050; J7120; J7512; J7620-GY

== ENCOUNTER 2023-04-25 17:54 | Emergency (ER) | payer MEDICARE, OTHER ==
[2023-04-25] MEDS: Iopamidol 612 MG/ML 100 ML Bottle IARTIC ONE (18:22)
[2023-04-25] MEDS: Iopamidol 612 MG/ML 100 ML Bottle IVPUSH ONE (18:24)
[2023-04-25 18:31] LABS: BASOPHILS PERCENT AUTO 1.4 % (0.0-1.0); HEMATOCRIT 32.8 % (40.0-54.0); HEMOGLOBIN 10.4 g/dL (14.0-18.0); LYMPHOCYTES PERCENT AUTO 17.8 % (20.5-50.1); MEAN CORPUSCULAR HEMOGLOBIN 31.2 pg (27.0-34.0); MEAN CORPUSCULAR HGB CONC 31.7 g/dL (33.0-35.0); MEAN CORPUSCULAR VOLUME 98.5 fL (80-100); MONOCYTES PERCENT AUTO 9.2 % (2-8); NEUTROPHILS PERCENT AUTO 71.6 % (42.2-75.2); PLATELET COUNT,PLT 174 10^3/uL (150-450); RED BLOOD CELL COUNT 3.33 10^6/uL (4.6-6.2)
[2023-04-25] MEDS: Sodium Chloride 0.9% 10 ML Syringe FLUSH PRN (18:43)
[2023-04-25] MEDS: Sodium Chloride 0.9% 1,000 ML IV ONE (18:44)
[2023-04-25 18:48] LABS: A/G RATIO 0.6; ALBUMIN 2.1 g/dL (3.4-5.0); ANION GAP 8.5 mEq/L (7-13); BILIRUBIN TOTAL 0.9 mg/dL (0.2-1.0); BUN/CREATININE RATIO 22.5 (No establ ref range); CREATININE 1.02 mg/dL (0.70-1.30); EST CRCL DRUG DOSING (CG) 47.73 mL/min; POTASSIUM,K 3.5 mmol/L (3.5-5.1); PROTEIN TOTAL,TP 5.6 g/dL (6.4-8.2)
[2023-04-25 19:53] VITALS: BP 122/65; PULSE 64
[2023-04-25 20:01] LABS: APPEARANCE,URINE CLEAR (CLEAR); BILIRUBIN,URINE NEGATIVE (NEGATIVE); COLOR,URINE YELLOW (YELLOW); GLUCOSE,URINE NEGATIVE (NEGATIVE); KETONES,URINE 15 (NEGATIVE); LEUKOCYTE ESTERASE,URINE NEGATIVE (NEGATIVE); NITRITE,URINE NEGATIVE (NEGATIVE); OCCULT BLOOD,URINE TRACE-INTACT (NEGATIVE); PROTEIN,URINE NEGATIVE (NEGATIVE)
[2023-04-25 20:09] LABS: AMORPHOUS SEDIMENT,URINE FEW /HPF (NOT SEEN); BACTERIA,URINE FEW /HPF (0-FEW/HPF); CALCIUM OXALATE CRYSTALS,URINE FEW /HPF (NOT SEEN); EPITHELIAL CELLS,URINE FEW /HPF (NOT SEEN); MUCUS,URINE MANY /LPF (NOT SEEN); RBC,URINE 0-5 /HPF (0-5); WBC,URINE 0-5 /HPF (0-5/HPF)
[2023-04-25 20:10] LABS: AMPHETAMINES,URINE NEGATIVE (NEGATIVE); BARBITURATES,URINE NEGATIVE (NEGATIVE); BENZODIAZEPINE,URINE NEGATIVE (NEGATIVE); MDMA (ECSTASY), URINE NEGATIVE (NEGATIVE); METHADONE,URINE NEGATIVE (NEGATIVE); METHAMPHETAMINES,URINE NEGATIVE (NEGATIVE); OPIATES,URINE NEGATIVE (NEGATIVE); OXYCODONE,URINE NEGATIVE (NEGATIVE); PHENCYCLIDINE,URINE NEGATIVE (NEGATIVE); TCA,URINE NEGATIVE (NEGATIVE)
== END 2023-04-25 21:00 ==
LOC: DL.ED 17:54
DX: R13.10 Dysphagia, unspecified (principal); R62.7 Adult failure to thrive; R22.2 Localized swelling, mass and lump, trunk; I10 Essential (primary) hypertension; J44.9 Chronic obstructive pulmonary disease, unspecified; M19.90 Unspecified osteoarthritis, unspecified site; Z79.82 Long term (current) use of aspirin; Z79.899 Other long term (current) drug therapy
CPT/HCPCS: 36415; 71260; 74177; 80053; 80305-QW; 81001; 83605; 83690; 84484; 85025; 93005; 93010; 96360; 99285; 99285-25; J3490; J7030; Q9967

== ENCOUNTER 2023-07-21 20:47 | Emergency (ER) | payer MEDICARE ==
[2023-07-21 21:01] VITALS: BP 83/54; PULSE 94
== END 2023-07-21 21:30 ==
LOC: DL.ED 20:47
DX: K94.13 Enterostomy malfunction (principal); I10 Essential (primary) hypertension; J44.9 Chronic obstructive pulmonary disease, unspecified; Z95.4 Presence of other heart-valve replacement; Z79.82 Long term (current) use of aspirin; Z79.899 Other long term (current) drug therapy
CPT/HCPCS: 99285